=== PATIENT | male | born 1960 | race American Indian/Alaskan Native ===

== ENCOUNTER 2017-01-03 05:39 | Inpatient (IN) | payer MEDICARE, OTHER ==
[2017-01-03 05:39] VITALS: BMI 20.1
--- NOTE | 2017-01-03 06:15 | ED PDOC ---
Arrival/HPI - General Chief Complaint: Abdominal Pain Time Seen by Provider: 01/03/17 06:12 Historian: Patient - History of Present Illness Narrative History of Present Illness (Text): 01/03/17 06:15 Ramón Cedeno Jr is a 56 year old male, whose past medical history includes hypertension, stroke, pancreatitis, and alcohol abuse, who presents to the Emergency department complaining of upper abdominal pain for the past 2 days, worsened today. Patient reports associated nausea. Patient states symptoms are similar to previous episodes of pancreatitis. Patient denies any recent alcohol consumption. Patient denies any fever, chills, chest pain, shortness of breath, nausea, vomiting, diarrhea, urinary symptoms, back pain, headache, dizziness, or any other complaints. Time/Duration: < week (2 days) Symptom Onset: Gradual Symptom Course: Worsening Activities at Onset: Rest, Light Context: Home Past Medical History - Provider Review Nursing Documentation Reviewed: Yes - Infectious Disease Hx of Infectious Diseases: None - Tetanus Immunization Tetanus Immunization: Unknown - Reproductive Currently : No - Cardiac Hx Cardiac Disorders: Yes Hx Hypertension: Yes - Pulmonary Hx Respiratory Disorders: No - Neurological HX Cerebrovascular Accident: Yes (2014) - HEENT Hx HEENT Disorder: No - Renal Hx Renal Disorder: No - Endocrine/Metabolic Hx Endocrine Disorders: No - Hematological/Oncological Hx Blood Disorders: No - Integumentary Hx Dermatological Disorder: No - Musculoskeletal/Rheumatological Hx Musculoskeletal Disorders: Yes Hx Back Pain: Yes Hx Falls: No - Gastrointestinal Hx Gastrointestinal Disorders: Yes Hx Pancreatitis: Yes - Genitourinary/Gynecological Hx Genitourinary Disorders: No - Psychiatric Hx Psychophysiologic Disorder: No Hx Substance Use: No - Past Surgical History Past Surgical History: No Previous Family/Social History - Physician Review Nursing Documentation Reviewed: Yes Family/Social History: Unknown Family HX Smoking Status: Heavy Smoker > 10 Cigarettes Daily Hx Alcohol Use: No Hx Substance Use: No Hx Substance Use Treatment: No Allergies/Home Meds Allergies/Adverse Reactions: Allergies banana Allergy (Verified 01/03/17 05:51) ANAPHYLAXIS grape Allergy (Verified 01/03/17 05:51) ANAPHYLAXIS Home Medications: Home Meds Medication Instructions Recorded Confirmed Aspirin [Ecotrin] 325 mg PO DAILY 12/03/15 02/25/16 Citalopram Hydrobromide [Celexa] 20 mg PO DAILY 12/03/15 02/25/16 Diclofenac Sodium [Voltaren] 75 mg PO BID PRN 12/03/15 02/25/16 DiphenhydrAMINE [Benadryl] 25 mg PO BID PRN 12/03/15 02/25/16 Famotidine [Pepcid] 20 mg PO DAILY 12/03/15 02/25/16 Hydrochlorothiazide [HCTZ] 25 mg PO DAILY 12/03/15 02/25/16 Metoprolol Tartrate [Lopressor] 25 mg PO BID 12/03/15 02/25/16 Simvastatin 20 mg PO DAILY 12/03/15 02/25/16 amLODIPine [Norvasc] 10 mg PO DAILY 12/03/15 02/25/16 Hydrocortisone 1% Oint [Cortizone 11 appl TOP BID 02/25/16 02/25/16 1% Oint] Review of Systems - Physician Review All systems were reviewed & negative as marked: Yes - Review of Systems Constitutional: Normal. absent: Fevers Eyes: Normal ENT: Normal Respiratory: Normal. absent: SOB, Cough Cardiovascular: Normal. absent: Chest Pain Gastrointestinal: Abdominal Pain, Nausea. absent: Diarrhea, Vomiting Genitourinary Male: Normal. absent: Dysuria, Frequency, Hematuria, Urinary Output Changes Musculoskeletal: Normal. absent: Back Pain, Neck Pain Skin: Normal. absent: Rash Neurological: Normal. absent: Headache, Dizziness Endocrine: Normal Hemo/Lymphatic: Normal Psychiatric: Normal Physical Exam Vital Signs Reviewed: Yes Vital Signs Temp Pulse Resp BP Pulse Ox 01/03/17 05:51 97.7 F 76 18 122/86 99 01/03/17 05:39 97.7 F 76 122/86 99 Temperature: Afebrile Blood Pressure: Normal Pulse: Regular Respiratory Rate: Normal Appearance: Positive for: Well-Appearing, Non-Toxic, Comfortable Pain Distress: None Mental Status: Positive for: Alert and Oriented X 3 - Systems Exam Head: Present: Atraumatic, Normocephalic Pupils: Present: PERRL Extroacular Muscles: Present: EOMI Conjunctiva: Present: Normal Mouth: Present: Moist Mucous Membranes Neck: Present: Normal Range of Motion Respiratory/Chest: Present: Clear to Auscultation, Good Air Exchange. No: Respiratory Distress, Accessory Muscle Use Cardiovascular: Present: Regular Rate and Rhythm, Normal S1, S2. No: Murmurs Abdomen: Present: Tenderness (Upper abdominal tenderness), Distention, Normal Bowel Sounds. No: Peritoneal Signs Back: Present: Normal Inspection Upper Extremity: Present: Normal Inspection. No: Cyanosis, Edema Lower Extremity: Present: Normal Inspection. No: Edema Neurological: Present: GCS=15, CN II-XII Intact, Speech Normal Skin: Present: Warm, Dry, Normal Color. No: Rashes Psychiatric: Present: Alert, Oriented x 3, Normal Insight, Normal Concentration Medical Decision Making ED Course and Treatment: 01/03/17 06:15 Impression: 56 year old male complaining of upper abdominal pain and nausea x 2 days. Plan: -- EKG -- CXR -- Labs, lipase, cardiac enzymes -- Reassess and disposition Prior Visits: Notes and results from previous visits were reviewed. On 08/04/2016, pt was seen in the Emergency department for epigastric pain, nausea, and diarrhea. Pt was admitted to the hospital for further evaluation. Progress Notes: 01/03/17 07:[address] Bear, pending labs, response to treatment, and final disposition. - RAD Interpretation Radiology Orders: 01/03/17 06:24 CHEST PORTABLE [RAD] Stat - Medication Orders Current Medication Orders: Sodium Chloride (Sodium Chloride 0.9%) 1,000 mls @ 100 mls/hr IV .Q10H [facility] Discontinued Medications Morphine Sulfate (Morphine) 4 mg IVP STAT STA Stop: 01/03/17 06:27 Ondansetron HCl (Zofran Inj) 4 mg IVP ONCE ONE Stop: 01/03/17 06:27 - Scribe Statement The provider has reviewed the documentation as recorded by the Yashira Meza Provider Scribe Attestation: All medical record entries made by the Scribe were at my direction and personally dictated by me. I have reviewed the chart and agree that the record accurately reflects my personal performance of the history, physical exam, medical decision making, and the department course for this patient. I have also personally directed, reviewed, and agree with the discharge instructions and disposition. Disposition/Present on Arrival - Present on Arrival Any Indicators Present on Arrival: No History of DVT/PE: No History of Uncontrolled Diabetes: No Urinary Catheter: No History of Decub. Ulcer: No History Surgical Site Infection Following: None - Disposition Have Diagnosis and Disposition been Completed?: No Diagnosis: Abdominal pain Disposition Time: 07:00 Condition: STABLE Forms: [employer] (Citizen [place])
[2017-01-03] MEDS ORDERED: Morphine 4 mg/ml ISec IVP STA ×2 (06:26→07:32)
[2017-01-03] MEDS ORDERED: Sodium Chloride 0.9% 1,000 ML IV SCH ×2 (06:30→07:45)
[2017-01-03 06:42] LABS: HEMOGLOBIN 13.1 gm/dL (14.0-18.0); MEAN CELL VOLUME 80.7 fL (80.0-105.0); MEAN CORPUSCULAR HEMOGLOBIN 27.2 pg (25.0-35.0); MEAN CORPUSCULAR HGB CONC 33.8 g/dl (31.0-37.0); MEAN PLATELET VOLUME 11.3 fl (7.0-11.0); RBC 4.81 10^6/uL (3.5-6.1); RED CELL DISTRIBUTION WIDTH 13.6 % (11.5-14.5); WHITE BLOOD COUNT 5.9 10^3/ul (4.5-11.0)
[2017-01-03 06:47] LABS: ALB/GLOB RATIO 1.2 (1.1-1.8); ALBUMIN 4.2 g/dL (3.0-4.8); ALT/SGPT 15 U/L (7-56); AST/SGOT 19 U/L (15-59); BLOOD UREA NITROGEN 9 mg/dL (7-21); CALCIUM 9.4 mg/dL (8.4-10.5); GFR AFRICAN-AMERICAN > 60; GFR NON-AFRICAN AMERICAN > 60
[2017-01-03 07:05] LABS: INR 1.07 (0.93-1.08); PARTIAL THROMBOPLASTIN TIME 25.1 Seconds (23.7-30.8); PROTHROMBIN TIME 11.6 Seconds (9.9-11.8)
[2017-01-03 07:23] LABS: LIPASE 7763 U/L (23-300); TROPONIN I < 0.01 ng/mL
--- NOTE | 2017-01-03 08:03 | ED PDOC ---
Physical Exam - Physical Exam Narrative Physical Exam (Text): 01/03/17 07:53 Signed out from prior MD. Patient is a 56 y/o M with hx of alcohol abuse and pancreatitis, presenting with abdominal pain. Recent visit for same in August. Labs consistent with pancreatitis. Chart review shows CT on 08/04 shows "findings suspicious for mild acute pancreatitis, superimposed on significant chronic pancreatitis, and complicated by a 3x3cm pseudocysts in the pancreatic bod and small 2.8 x 1cm peripancreatic fluid collection." MRCP on 08/05/16 revealing "abnormal appearance of gallbladder. Correlate clinically. Probable pancreatic pseudocysts. Pancreatic ductal dilatation measuring up to approximately 4mm with distal pancreatic duct filling defect, possibily calculus. Patient reports that he has been following up with unknown outpatient GI and has prescription for unknown procedure. Patient reports persistent pain. IVF infusing. Patient NPO and getting pain medication. Patient reports that he has been following up with outpatient GI ( [facility]) but has been unable to get the prescribed MRI MRCP with contrast or scheduled his endoscopic ultrasound with FNA Will page Dr. Canchola and admit to medicine. 01/03/17 08:04 01/03/17 08:[address] Canchola who accepts patient under his service. He is requesting CT abd/pelvis with contrast 01/03/17 11:07 Vital Signs Temp Pulse Resp BP Pulse Ox 01/03/17 08:00 76 18 127/80 96 01/03/17 07:39 80 18 101/69 95 01/03/17 05:51 97.7 F 76 18 122/86 99 01/03/17 05:39 97.7 F 76 122/86 99 Temperature: Afebrile Blood Pressure: Normal Pulse: Regular Respiratory Rate: Normal Appearance: Positive for: Well-Appearing, Non-Toxic, Uncomfortable Pain Distress: None Mental Status: Positive for: Alert and Oriented X 3 - Systems Exam Head: Present: Atraumatic, Normocephalic Respiratory/Chest: Present: Clear to Auscultation, Good Air Exchange. No: Respiratory Distress Cardiovascular: Present: Regular Rate and Rhythm Abdomen: Present: Tenderness Neurological: Present: GCS=15 Psychiatric: Present: Alert, Oriented x 3 Medical Decision Making - Lab Interpretations Lab Results: 01/03/17 06:00 01/03/17 06:00 Lab Results 01/03/17 06:00: WBC 5.9, RBC 4.81, Hgb 13.1 L, Hct 38.8 L, MCV 80.7, MCH 27.2, MCHC 33.8, RDW 13.6, Plt Count 183, MPV 11.3 H 01/03/17 06:00: Sodium 141, Potassium 3.9, Chloride 100, Carbon Dioxide 29, Anion Gap 16, BUN 9, Creatinine 0.7, Est GFR ( Amer) > 60, Est GFR (Non- Af Amer) > 60, Random Glucose 116 H, Calcium 9.4, Total Bilirubin 0.8, AST 19, ALT 15, Alkaline Phosphatase 98, Lactate Dehydrogenase 327 L, Total Creatine Kinase 60, Troponin I < 0.01, Total Protein 7.7, Albumin 4.2, Globulin 3.5, Albumin/Globulin Ratio 1.2, Lipase 7763 H 01/03/17 06:00: PT 11.6, INR 1.07, APTT 25.1 - RAD Interpretation Radiology Orders: 01/03/17 06:24 CHEST PORTABLE [RAD] Stat 01/03/17 08:23 ABD & PELVIS IV CONTRAST ONLY [CT] Stat - Medication Orders Current Medication Orders: Discontinued Medications Sodium Chloride (Sodium Chloride 0.9%) 1,000 mls @ 100 mls/hr IV .Q10H [facility] Last Admin: 01/03/17 06:52 Dose: 100 mls/hr Morphine Sulfate (Morphine) 4 mg IVP STAT STA Stop: 01/03/17 06:27 Last Admin: 01/03/17 06:53 Dose: 4 mg Morphine Sulfate (Morphine) 4 mg IVP STAT STA Stop: 01/03/17 07:33 Last Admin: 01/03/17 08:00 Dose: 4 mg Ondansetron HCl (Zofran Inj) 4 mg IVP ONCE ONE Stop: 01/03/17 06:27 Last Admin: 01/03/17 06:53 Dose: 4 mg Disposition/Present on Arrival - Present on Arrival Any Indicators Present on Arrival: No History of DVT/PE: No History of Uncontrolled Diabetes: No Urinary Catheter: No History of Decub. Ulcer: No History Surgical Site Infection Following: None - Disposition Have Diagnosis and Disposition been Completed?: Yes Diagnosis: Abdominal pain Disposition: HOSPITALIZED Disposition Time: 07:32 Patient Plan: Observation Patient Problems: Current Active Problems Problem Status Onset Abdominal pain Acute Condition: FAIR
[2017-01-03] MEDS ORDERED: Iohexol 350 MG/100 ML VIAL ONE (08:28)
[2017-01-03] MEDS: Sodium Chloride 0.9% 1,000 ML IV SCH ×2 (09:18→09:59)
--- NOTE | 2017-01-03 09:39 | RAD ---
HISTORY: abdominal pain COMPARISON: 08/04/2016 FINDINGS: LUNGS: No active pulmonary disease. PLEURA: No significant pleural effusion identified, no pneumothorax apparent. CARDIOVASCULAR: Normal. OSSEOUS STRUCTURES: No significant abnormalities. VISUALIZED UPPER ABDOMEN: Normal. OTHER FINDINGS: None. IMPRESSION: No active disease.
--- NOTE | 2017-01-03 10:01 | CP.PCM.CON ---
History of Present Illness - History of Present Illness History of Present Illness: Asked by Dr. Canchola for a GI consultation on this patient. 56 year old male with history of HTN, chronic pancreatitis secondary to ETOH abuse who presents with complaint of epigastric abdominal pain. He describes a sharp, 8/10 intensity abdominal pain that radiates to umbilicus and began 2 days ago. He was in usual state of health prior to this. He was eating peanuts and drinking soda when pain started and endorses a subjective fever at that time. He otherwise denies nausea, vomiting, diarrhea, weight loss, rectal bleeding, recent change in medications, or change in bowel habits. He claims to have stopped drinking ETOH about 4 months ago following hospitalization for similar complaints. He was noted to have a pancreatic cystic lesion on MRCP imaging in August 2016 and was recommended to have outpatient EUS but did not follow up. No prior endoscopic evaluation. Social history: smokes 1 PPD cigarettes, prior ETOH abuse (quit August 2016) Family history: father (colon cancer - diagnosed age 70s) Review of Systems - Review of Systems Review of Systems: - All other comprehensive 12 point review of systems performed, negative - Cardiovascular Cardiovascular: absent: Acrocyanosis, Chest Pain, Chest Pain at Rest, Chest Pain with Activity, Claudication, Diaphoresis, Dyspnea, Dyspnea on Exertion, Edema, Irregular Heart Rhythm, Pain Radiating to Arm/Neck/Jaw, Leg Edema, Leg Ulcers, Lightheadedness, Orthopnea, Palpitations, Paroxysmal Nocturnal Dyspnea, Pedal Edema, Radiating Pain, Rapid Heart Rate, Slow Heart Rate, Syncope, Other - Respiratory Respiratory: absent: Cough, Dyspnea, Hemoptysis, Dyspnea on Exertion, Wheezing, Snoring, Stridor, Pain on Inspiration, Chest Congestion, Excessive Mucous Production, Change in Mucous Color, Pain with Coughing, Other - Gastrointestinal Gastrointestinal: Abdominal Pain - Musculoskeletal Musculoskeletal: absent: Abnormal Gait, Arthralgias, Atrophy, Back Pain, Deformity, Joint Swelling, Limited Range of Motion, Loss of Height, Muscle Cramps, Muscle Weakness, Myalgias, Neck Pain, Numbness, Radiating Pain into Limb , Stiffness, Tingling, Other - Neurological Neurological: absent: Abnormal Gait, Abnormal Hearing, Abnormal Movements, Abnormal Speech, Behavioral Changes, Burning Sensations, Confusion, Convulsions , Disequilibrium, Dizziness, Numbness, Focal Weakness, Frequent Falls, Headaches , Lack of Coordination, Loss of Vision, Memory Loss, Paresthesias, Radicular Pain, Restless Legs, Sensory Deficit, Syncope, Tingling, Tremor, Vertigo, Weakness, Other Visual Disturbances, Other Past Patient History - Infectious Disease Hx of Infectious Diseases: None - Tetanus Immunizations Tetanus Immunization: Unknown - Past Medical History & Family History Past Medical History?: Yes - Past Social History Smoking Status: Heavy Smoker > 10 Cigarettes Daily - CARDIAC Hx Cardiac Disorders: Yes Hx Hypertension: Yes - PULMONARY Hx Respiratory Disorders: No - NEUROLOGICAL HX Cerebrovascular Accident: Yes (2014) - HEENT Hx HEENT Problems: No - RENAL Hx Chronic Kidney Disease: No - ENDOCRINE/METABOLIC Hx Endocrine Disorders: No - HEMATOLOGICAL/ONCOLOGICAL Hx Blood Disorders: No - INTEGUMENTARY Hx Dermatological Problems: No - MUSCULOSKELETAL/RHEUMATOLOGICAL Hx Musculoskeletal Disorders: Yes Hx Back Pain: Yes Hx Falls: No - GASTROINTESTINAL Hx Gastrointestinal Disorders: Yes Hx Pancreatitis: Yes - GENITOURINARY/GYNECOLOGICAL Hx Genitourinary Disorders: No - PSYCHIATRIC Hx Psychophysiologic Disorder: No Hx Substance Use: No - SURGICAL HISTORY Hx Surgeries: No Meds Allergies/Adverse Reactions: Allergies Allergy/AdvReac Type Severity Reaction Status Date / Time banana Allergy ANAPHYLAXIS Verified 01/03/17 05:51 grape Allergy ANAPHYLAXIS Verified 01/03/17 05:51 - Medications Medications: Current Medications Hydromorphone HCl (Dilaudid) 0.5 mg IVP Q4H PRN PRN Reason: Pain, moderate (4-7) Sodium Chloride (Sodium Chloride 0.9%) 1,000 mls @ 125 mls/hr IV .Q8H [facility] Stop: 01/07/17 00:29 Last Admin: 01/03/17 09:18 Dose: 125 mls/hr Ondansetron HCl (Zofran Inj) 4 mg IVP Q4H PRN PRN Reason: Nausea/Vomiting Pantoprazole Sodium (Protonix Inj) 40 mg IVP Q12 [facility] Last Admin: 01/03/17 09:26 Dose: 40 mg Physical Exam - Constitutional Appears: Non-toxic, No Acute Distress - Head Exam Head Exam: NORMAL INSPECTION - Eye Exam Eye Exam: EOMI, Normal appearance - ENT Exam ENT Exam: Mucous Membranes Moist - Respiratory Exam Respiratory Exam: Clear to Auscultation Bilateral - Cardiovascular Exam Cardiovascular Exam: REGULAR RHYTHM, +S1, +S2 - GI/Abdominal Exam GI & Abdominal Exam: Normal Bowel Sounds, Soft, Tenderness Additional comments: mild epigastric tenderness to deep palpation, no rebound/guarding no palpable hepato/splenomegaly - Extremities Exam Extremities exam: Positive for: normal inspection - Neurological Exam Neurological exam: Alert, CN II-XII Intact, Oriented x3, Reflexes Normal - Psychiatric Exam Psychiatric exam: Normal Affect, Normal Mood - Skin Skin Exam: Dry, Intact, Warm Additional comments: +patches of vitilligo on lips, b/l upper and lower extremities, trunk Results - Vital Signs Recent Vital Signs: Last Vital Signs Temp 97.7 F 01/03/17 05:51 Pulse 79 01/03/17 08:52 Resp 18 01/03/17 08:52 BP 139/86 01/03/17 08:52 Pulse Ox 97 01/03/17 08:52 - Labs Result Diagrams: 01/03/17 06:00 01/03/17 06:00 Assessment & Plan - Assessment and Plan (Free Text) Assessment: HTN Abdominal pain Acute on chronic pancreatitis, prior history of ETOH abuse and pancreatic cystic lesion Plan: - Clear liquid diet as tolerated - Pain control - Continue with IVF hydration, adjust fluid rate to provide adequate fluid resuscitation within first 24 hours - CT imaging ordered by medical team, will follow up results - Consider US imaging to further evaluate gallbladder - Awaiting lipid profile - LFTs stable, continue to monitor - Further management pending results of pancreatic imaging. Patient would also benefit from elective outpatient colonoscopy for colorectal cancer screening, particularly given family history of colon cancer. Will continue to monitor patient clinical course.
--- NOTE | 2017-01-03 10:10 | CARD ---
APPROVED REPORT EKG Measurement Heart [id number] <Conclusion> Normal sinus rhythm Normal ECG No change
[2017-01-03 10:30] LABS: HDL CHOLESTEROL 40 mg/dL (29-60); LDL CHOLESTEROL 109 mg/dL (0-129)
[2017-01-03 10:38] LABS: FREE T4 1.3 ng/dL (0.78-2.19); T4 9.6 ug/dL (5.5-11.0)
--- NOTE | 2017-01-03 10:49 | CT ---
PROCEDURE: CT Abdomen and Pelvis with contrast HISTORY: abdominal pain COMPARISON: 08/04/2016 TECHNIQUE: Contrast dose: 100 cc of Omni 350 Radiation dose: Total exam DLP = 362 mGy-cm. This CT exam was performed using one or more of the following dose reduction techniques: Automated exposure control, adjustment of the mA and/or kV according to patient size, and/or use of iterative reconstruction technique. FINDINGS: LOWER THORAX: Unremarkable. LIVER: Unremarkable. No gross lesion or ductal dilatation. GALLBLADDER AND BILE DUCTS: Unremarkable. PANCREAS: Multiple findings are seen in the pancreas related to chronic pancreatitis. There are calcifications throughout the pancreas as well as dilatation of the pancreatic duct which measures 5 mm. There is a pseudocyst in the pancreatic head measuring 3.2 cm. There is some increased density within the pseudocyst which could represent hemorrhagic or proteinaceous debris. Increasing hypodensities are seen in the uncinate process which probably represent new pseudocysts. A pancreatic malignancy would be difficult to exclude. There are no acute inflammatory changes seen. The fat planes surrounding the pancreas are unremarkable SPLEEN: Unremarkable. ADRENALS: Unremarkable. No mass. KIDNEYS AND URETERS: Unremarkable. No hydronephrosis. No solid mass. VASCULATURE: Unremarkable. No aortic aneurysm. BOWEL: Unremarkable. No obstruction. No gross mural thickening. APPENDIX: Normal appendix. PERITONEUM: Unremarkable. No free fluid. No free air. LYMPH NODES: Unremarkable. No enlarged lymph nodes. BLADDER: Unremarkable. REPRODUCTIVE: Unremarkable. BONES: No acute fracture. OTHER FINDINGS: None. IMPRESSION: Changes of chronic pancreatitis with dilatation of the pancreatic duct. Pseudocyst formation and multiple calcifications. No acute findings
[2017-01-03] MEDS: Lactated Ringer's 1,000 ML IV SCH ×2 (11:46→17:03)
[2017-01-03 17:02] LABS: HEPATITIS B SURFACE AG NEGATIVE (NEGATIVE)
[2017-01-03 17:07] LABS: HEPATITIS A IGM NEGATIVE (NEGATIVE)
[2017-01-03 17:08] LABS: HEPATITIS B CORE AB NEGATIVE (NEGATIVE)
[2017-01-03] MEDS: HYDROmorphone 0.5 mg/0.5 ml ISec IVP PRN ×2 (17:08→21:51)
[2017-01-03 17:18] LABS: HEPATITIS C ANTIBODY NEGATIVE (NEGATIVE)
[2017-01-03 23:42] LABS: URINE BILIRUBIN NEGATIVE (NEGATIVE); URINE BLOOD NEGATIVE (NEGATIVE); URINE GLUCOSE (UA) NEGATIVE (NEGATIVE); URINE LEUKOCYTE ESTERASE NEGATIVE Leu/uL (NEGATIVE); URINE NITRATE NEGATIVE (NEGATIVE); URINE PROTEIN TRACE mg/dL (<30 mg/dL); URINE UROBILINOGEN 0.2 E.U./dL (<1 E.U./dL)
[2017-01-03 23:52] LABS: URINE APPEARANCE CLEAR (CLEAR); URINE COLOR YELLOW (YELLOW)
[2017-01-04 00:04] LABS: URINE EPITHELIAL CELLS 0 - 2 /hpf (0-5); URINE RBC 0 - 2 /hpf (0-2); URINE WBC 0 - 2 /hpf (0-6)
[2017-01-04 00:25] LABS: BARBITURATES, UR NEGATIVE (NEGATIVE); BENZODIAZEPINES, UR NEGATIVE (NEGATIVE); OPIATES, UR POSITIVE (NEGATIVE); PHENCYCLIDINE, UR NEGATIVE (NEGATIVE)
--- NOTE | 2017-01-04 01:33 | HP ---
HISTORY OF PRESENT ILLNESS: The patient is a 56-year-old male, who has been admitted at least two or three times to [facility] with complaints of abdominal pain, pancreatitis and pancreatic pseudocysts. The patient came this morning to the [facility] around 5:00 a.m. this morning complaining of midabdominal pain for two days. The patient stated that his last bowel movement was Tuesday which was two days ago. The patient came to the emergency room via [facility]. According to the ER physician evaluation note, the patient presents with mid abdominal pain for two days which has increased today with nausea. The patient categorically denies alcohol use. The patient does admit to smoking. REVIEW OF SYSTEMS: A 13-system review was done which is negative. CODE STATUS: Full code. LIVING WILL/ADVANCED DIRECTIVE: None. HEIGHT: 5 feet 6 inches. WEIGHT: 135 pounds. BMI: 22. ALLERGIES: BANANAS AND GRAPES but no known drug allergies. MEDICATIONS: The patient's home medications include Norvasc 10 mg daily, simvastatin 20 mg daily, Lopressor 25 mg twice a day, cortisone cream, hydrochlorothiazide 25 mg daily, Pepcid 20 mg twice a day, Benadryl 25 mg twice a day p.r.n., Voltaren 75 mg b.i.d. p.r.n., Celexa 20 mg daily, aspirin 325 mg daily. SOCIAL HISTORY: Positive for active smoking, positive for alcohol use. OCCUPATIONAL HISTORY: The patient used to work in a factory. PAST MEDICAL/SURGICAL HISTORY: History of TIA in 2015, history of hypertension, history of dyslipidemia, history of alcohol-induced pancreatitis, history of questionable depression, history of back pain. The patient's past medical history is also significant for hypertension, history of leukopenia, history of anemia, history of transient hyperbilirubinemia, history of former alcohol use, active smoking. The patient's past medical history is significant for pancreatic pseudocyst, history of acute on chronic recurrent pancreatitis, history of atelectasis. The patient's past medical history is significant for hiatal hernia, history of gastroesophageal reflux, history of hepatic steatosis, history of pancreatic head pseudocyst. The patient's past medical history is significant for degenerative joint disease of the spine. Past medical history is also significant for noncompliance. The patient's past medical history is significant for history of focal gallbladder wall thickening, history of pancreatic cystic mass in the pancreatic head, pancreatic body with enlargement, history of pancreatic pseudocyst, history of pancreatic calcification, history of dilated pancreatic duct up to 8 mm, history of acute on chronic recurrent pancreatitis, history of pseudo-gastric wall thickening due to under distention, history of osteoarthritis of the right hip, history of gastritis, history of diffuse gallbladder wall thickening, history of MRCP and previous CAT scan done at [facility] since 2016, history of filling defect in the distal pancreatic duct with dilated distal pancreatic duct, history of peripancreatic fluid collection, history of mild ascites, history of probably pancreatic pseudocyst, history of pancreatic ductal dilatation up to 4 mm with distal pancreatic duct filling defect, possibly pancreatic duct calculus, history of ascites. The patient's past medical history is significant for history of alcohol dependence in the past. PHYSICAL EXAMINATION VITAL SIGNS: T-max is 97.7. Blood pressure is 122/86, 127/80, 139/86. Respirations 18. O2 saturation is 95% to 99%. GENERAL: The patient is seen lying in room #573, bed 3. The patient is lying in the bed. The patient is comfortable. HEENT: The patient's head examination is normocephalic and atraumatic. Pinkish conjunctivae, dry oral mucosa, no neck rigidity. CHEST: Kyphosis. LUNGS: Shows no rales, rhonchi or wheezing. CARDIOPULMONARY: S1, S2, regular rhythm. ABDOMEN: Slightly distended, slightly firm. Decreased bowel sounds. GENITALIA: Male. RECTAL: Deferred. EXTREMITIES: Shows no *------* Homans sign. NEUROLOGIC: The patient is alert, awake, responsive. He is able to move upper and lower extremities without assistance. MUSCULOSKELETAL: Shows a body mass index of 22. Cranial nerves II through XII are not tested. PSYCHIATRIC: Positive for history of depression. DIAGNOSTIC DATA: WBC 5.9, hemoglobin and hematocrit 13.1 and 38.8, platelets 183,000. PT and PTT is normal. Sodium 141, potassium 3.9, chloride 100, CO2 of 29, anion gap 16, BUN 9, creatinine 0.7, GFR greater than 60. Glucose 116. Calcium 9.4. LFTs show LDH of 327, troponin 0.01, triglycerides 112, cholesterol 172, LDL 109, lipase is 7763, PSA is 1.8, TSH is normal, T4 is normal. The patient had a CAT scan of the abdomen done which showed pancreatic calcifications, dilatation of the pancreatic duct 5 mm, pseudocyst of the pancreatic head, hemorrhagic and proteinaceous dense debris in the pancreatic pseudocyst representing new pancreatic pseudocyst. EKG was reviewed, shows sinus rhythm. The patient was seen and treated in the emergency room with IV fluid, IV morphine, IV Zofran. IMPRESSION AND PLAN: 1. Abdominal pain. 2. Acute recurrent on chronic pancreatitis with history of alcohol abuse. 3. Pancreatic pseudocyst. 4. Normocytic anemia. 5. Hyperglycemia. 6. Acute on chronic recurrent pancreatitis with elevated lipase. 7. Increasing pancreatic pseudocyst with acute recurrent on chronic pancreatitis. 8. Dilated pancreatic duct. 9. Pancreatic head pseudocyst. 10. Increasing pancreatic pseudocyst density representing hemorrhagic or proteinaceous debris with increasing hyperdensities in the uncinate process, probably new pancreatic pseudocyst. 11. Active nicotine addiction. 12. History of hypertension. 13. History of dyslipidemia. 14. History of alcohol abuse. PLAN: At this time, the patient is admitted to [facility]. Serial labs has been ordered. Serial amylase and lipase ordered, vitamin D, hepatitis family, HIV ordered. GI consultation requested. The patient was started on Dilaudid 0.5 mg IV q.4 p.r.n. Ringer's lactate at 200 mL an hour ordered. The patient started on nicotine patch 21 mg daily, Protonix 40 mg IV q.12, Zofran 4 mg IV q.4 p.r.n. The patient is started on liquid diet by Dr. Lilly. The patient is ordered incentive spirometry q.2 hours. The patient has been ordered out of bed to chair. The patient's case was discussed with the webbing tacker, Dr. Lilly. His recommendation is EUS and colonoscopy which is going to be scheduled during this hospitalization as per the webbing tacker. Dictated and electronically signed, not read. Nilesh Canchola MD
[2017-01-04] MEDS: Lactated Ringer's 1,000 ML IV SCH ×3 (03:26→17:29)
[2017-01-04] MEDS ORDERED: Lactated Ringer's 1,000 ML IV SCH (07:16)
[2017-01-04] MEDS ORDERED: Barium Sulfate Susp 2.1% w/v, 2.0% w/w 450 mL Bottle PO ONE (07:26)
[2017-01-04 07:55] LABS: BASO # 0.01 K/mm3 (0.0-2.0); BASO % 0.1 % (0.0-3.0); EOS # 0.2 (0.0-0.7); EOS % 2.5 % (1.5-5.0); GRAN # 5.17 (1.4-6.5); GRAN % 70.4 % (50.0-68.0); HEMOGLOBIN 12.3 gm/dL (14.0-18.0); LYMPH # 1.4 (1.2-3.4); LYMPH % 19.1 % (22.0-35.0); MEAN CELL VOLUME 80.8 fL (80.0-105.0); MEAN CORPUSCULAR HEMOGLOBIN 27.5 pg (25.0-35.0); MEAN CORPUSCULAR HGB CONC 34.1 g/dl (31.0-37.0); MONO # 0.6 (0.1-0.6); MONO % 7.9 % (1.0-6.0); PLATELET COUNT 177 10^3/uL (120.0-450.0); RBC 4.47 10^6/uL (3.5-6.1); RED CELL DISTRIBUTION WIDTH 13.5 % (11.5-14.5); WHITE BLOOD COUNT 7.3 10^3/ul (4.5-11.0)
[2017-01-04] MEDS ORDERED: Iohexol 240 (50 ml) ONE (08:08)
[2017-01-04 09:04] LABS: ALB/GLOB RATIO 1.3 (1.1-1.8); ALBUMIN 3.9 g/dL (3.0-4.8); ALT/SGPT 20 U/L (7-56); AST/SGOT 19 U/L (15-59); BILIRUBIN,DIRECT 0.4 mg/dL (0.0-0.4); BLOOD UREA NITROGEN 9 mg/dL (7-21); CALCIUM 9.1 mg/dL (8.4-10.5); GFR AFRICAN-AMERICAN > 60; GFR NON-AFRICAN AMERICAN > 60; LIPASE 1611 U/L (23-300); MAGNESIUM 1.8 mg/dL (1.7-2.2)
[2017-01-04 09:09] LABS: AMYLASE 620 U/L (35-125)
--- NOTE | 2017-01-04 09:09 | CP.PCM.PN ---
<Rosalina Cha - Last Filed: 01/04/17 17:38> Subjective - Date & Time of Evaluation Date of Evaluation: 01/04/17 Time of Evaluation: 09:05 - Subjective Subjective: Gastroenterology Fellow/PGY5 Progress Note Patient notes unchanged epigastric pain, pain scale 8/10. He feels more distended which is adding to his discomfort. Notes yesterday morning clear liquids made the pain worse but tolerated clear liquids for dinner. No bowel movement yesterday. A 12-point review of systems negative except for as above. Objective - Vital Signs/Intake and Output Vital Signs (last 24 hours): Temp Pulse Resp BP Pulse Ox 99 F 104 H 20 124/91 H 94 L 01/04/17 08:24 01/04/17 08:24 01/04/17 08:24 01/04/17 08:24 01/04/17 08:24 Intake and Output: 01/04/17 01/04/17 06:59 18:59 Intake Total 840 Balance 840 - Medications Medications: Current Medications Atorvastatin Calcium (Lipitor) 40 mg PO DIN [facility] Last Admin: 01/03/17 22:37 Dose: 40 mg Cholecalciferol (Vitamin D) 2,000 iu PO DAILY [facility] Hydromorphone HCl (Dilaudid) 0.5 mg IVP Q4H PRN PRN Reason: Pain, moderate (4-7) Last Admin: 01/03/17 21:51 Dose: 0.5 mg Lactated Ringer's (Lactated Ringer's) 1,000 mls @ 200 mls/hr IV .Q5H [facility] Nicotine (Nicoderm Cq) 1 patch TD DAILY [facility] Last Admin: 01/03/17 12:11 Dose: 1 patch Ondansetron HCl (Zofran Inj) 4 mg IVP Q4H PRN PRN Reason: Nausea/Vomiting Pantoprazole Sodium (Protonix Inj) 40 mg IVP Q12 [facility] Last Admin: 01/03/17 21:51 Dose: 40 mg - Labs Labs: 01/04/17 07:30 PT 11.6 Seconds (9.9-11.8) 01/03/17 06:00 INR 1.07 (0.93-1.08) 01/03/17 06:00 APTT 25.1 Seconds (23.7-30.8) 01/03/17 06:00 - Constitutional Appears: Non-toxic, No Acute Distress - Head Exam Head Exam: ATRAUMATIC, NORMOCEPHALIC - Eye Exam Eye Exam: EOMI, PERRL Pupil Exam: PERRL. absent: Miosis, Mydriatic - ENT Exam ENT Exam: Mucous Membranes Moist, Normal Oropharynx - Neck Exam Neck Exam: Full ROM, Normal Inspection - Respiratory Exam Respiratory Exam: Clear to Ausculation Bilateral. absent: Rales, Rhonchi, Wheezes - Cardiovascular Exam Cardiovascular Exam: RRR, +S1, +S2. absent: Gallop, Rubs - GI/Abdominal Exam GI & Abdominal Exam: Distended, Firm, Tenderness, Hypoactive Bowel Sounds. absent: Guarding, Rigid, Organomegaly, Rebound Additional comments: epigastric tenderness to palpation - Extremities Exam Extremities Exam: Full ROM, Pedal Edema - Neurological Exam Neurological Exam: Alert, Awake - Psychiatric Exam Psychiatric exam: Normal Affect, Normal Mood - Skin Skin Exam: Dry, Intact, Normal Color, Warm Assessment and Plan - Assessment and Plan (Free Text) Assessment: 56 year old male with history of Hypertension, Alcohol abuse (endorsed sobriety since 08/2016), and recurrent alcoholic pancreatitis ( last episode 08/2016) presenting with abdominal pain. Active treatment of acute on chronic pancreatitis. CT A/P IV contrast showed pancreatic head 3.2cm pseudocyst ( increased internal density), uncinate process increased densities (likely new pseudocysts), and pancreatic duct dilatation. No prior endoscopic evaluation. Plan: >pending Abdominal U/S and obstructive series >would not repeat CT scan as low utility in re-evaluation pancreatitis progress at less than [address] and admission >Lipid panel within normal limits >continue LR 150cc/hr >clear liquid diet as tolerated >supportive care: pain control, anti-emetics, PPI >ordered Miralax daily >will benefit from elective CT pancreas protocol after resolution of acute pancreatitis > will benefit from elective outpatient colonoscopy for colorectal cancer screening -family history of colon cancer >will follow clinical course <Felix Ibrahim - Last Filed: 01/04/17 19:40> Objective - Vital Signs/Intake and Output Vital Signs (last 24 hours): Temp Pulse Resp BP Pulse Ox 98.3 F 110 H 22 149/97 H 94 L 01/04/17 16:00 01/04/17 16:00 01/04/17 16:00 01/04/17 16:00 01/04/17 16:00 Intake and Output: 01/04/17 01/05/17 18:59 06:59 Intake Total 600 Balance 600 - Medications Medications: Current Medications Atorvastatin Calcium (Lipitor) 40 mg PO DIN [facility] Last Admin: 01/04/17 17:28 Dose: 40 mg Cholecalciferol (Vitamin D) 2,000 iu PO DAILY [facility] Last Admin: 01/04/17 11:00 Dose: 2,000 iu Hydromorphone HCl (Dilaudid) 0.5 mg IVP Q4H PRN PRN Reason: Pain, moderate (4-7) Last Admin: 01/04/17 09:46 Dose: 0.5 mg Lactated Ringer's (Lactated Ringer's) 1,000 mls @ 150 mls/hr IV .Q6H40M [facility] Last Admin: 01/04/17 17:29 Dose: 150 mls/hr Nicotine (Nicoderm Cq) 1 patch TD DAILY [facility] Last Admin: 01/04/17 09:47 Dose: 1 patch Ondansetron HCl (Zofran Inj) 4 mg IVP Q4H PRN PRN Reason: Nausea/Vomiting Pantoprazole Sodium (Protonix Inj) 40 mg IVP Q12 [facility] Last Admin: 01/04/17 09:47 Dose: 40 mg Polyethylene Glycol (Miralax) 17 gm PO DAILY [facility] Last Admin: 01/04/17 09:47 Dose: 17 gm - Labs Labs: PT 11.6 Seconds (9.9-11.8) 01/03/17 06:00 INR 1.07 (0.93-1.08) 01/03/17 06:00 APTT 25.1 Seconds (23.7-30.8) 01/03/17 06:00 Attending/Attestation - Attestation I have personally seen and examined this patient.: Yes I have fully participated in the care of the patient.: Yes I have reviewed all pertinent clinical information, including history, physical exam and plan: Yes Notes (Text): 01/04/17 19:36 56 year old male with h/o EtOH abuse c/b chronic calcific pancreatitis admitted with abdominal pain. 1. Chronic pancreatitis 2. Pancreatic pseudocyst Plan: -CT scans reviewed -he has pancreatitis and looks like a small cyst as well as possible evolving small fluid collection adjacent to the stomach -would continue supportive measures for pancreatitis including pain control, IV hydration, anti-emetics as needed -advance diet as tolerated to low fat -etoh and smoking cessation/abstinence -recommend repeat CT scan in 1-2 months -consider outpatient EUS
[2017-01-04] MEDS ORDERED: Iohexol 350 MG/100 ML VIAL ONE (09:22)
[2017-01-04] MEDS: HYDROmorphone 0.5 mg/0.5 ml ISec IVP PRN (09:46)
[2017-01-04] MEDS: POLYETHYLENE GLYCOL 3350 17 GM/Dose PACKET PO SCH (09:47)
--- NOTE | 2017-01-04 10:55 | CP.PCM.PN ---
Subjective - Date & Time of Evaluation Date of Evaluation: 01/04/17 Time of Evaluation: 07:00 - Subjective Subjective: Medicine Progress Note for Dr. Canchola Patient seen and examined at bedside. There were no acute overnight events. Patient was complaining about LUQ abdominal pain today which radiates throughout the abdomen, especially upon palpation. He had a BM this morning. He denies CP, SOB, n/v/d, numbness/tingling, fever or chills. Objective - Vital Signs/Intake and Output Vital Signs (last 24 hours): Temp Pulse Resp BP Pulse Ox 99 F 104 H 20 124/91 H 94 L 01/04/17 08:24 01/04/17 08:24 01/04/17 08:24 01/04/17 08:24 01/04/17 08:24 - Medications Medications: Current Medications Atorvastatin Calcium (Lipitor) 40 mg PO DIN [facility] Last Admin: 01/03/17 22:37 Dose: 40 mg Cholecalciferol (Vitamin D) 2,000 iu PO DAILY [facility] Hydromorphone HCl (Dilaudid) 0.5 mg IVP Q4H PRN PRN Reason: Pain, moderate (4-7) Last Admin: 01/04/17 09:46 Dose: 0.5 mg Lactated Ringer's (Lactated Ringer's) 1,000 mls @ 150 mls/hr IV .Q6H40M [facility] Last Admin: 01/04/17 09:47 Dose: 150 mls/hr Nicotine (Nicoderm Cq) 1 patch TD DAILY [facility] Last Admin: 01/04/17 09:47 Dose: 1 patch Ondansetron HCl (Zofran Inj) 4 mg IVP Q4H PRN PRN Reason: Nausea/Vomiting Pantoprazole Sodium (Protonix Inj) 40 mg IVP Q12 [facility] Last Admin: 01/04/17 09:47 Dose: 40 mg Polyethylene Glycol (Miralax) 17 gm PO DAILY [facility] Last Admin: 01/04/17 09:47 Dose: 17 gm - Labs Labs: PT 11.6 Seconds (9.9-11.8) 01/03/17 06:00 INR 1.07 (0.93-1.08) 01/03/17 06:00 APTT 25.1 Seconds (23.7-30.8) 01/03/17 06:00 - Constitutional Appears: No Acute Distress - Head Exam Head Exam: ATRAUMATIC, NORMAL INSPECTION, NORMOCEPHALIC - Eye Exam Eye Exam: Normal appearance, PERRL Pupil Exam: NORMAL ACCOMODATION, PERRL - ENT Exam ENT Exam: Mucous Membranes Moist - Neck Exam Neck Exam: Full ROM, Normal Inspection - Respiratory Exam Respiratory Exam: Clear to Ausculation Bilateral, NORMAL BREATHING PATTERN. absent: Rales, Rhonchi, Wheezes, Respiratory Distress - Cardiovascular Exam Cardiovascular Exam: REGULAR RHYTHM, +S1, +S2. absent: Gallop, Rubs, Murmur - GI/Abdominal Exam GI & Abdominal Exam: Distended, Firm, Tenderness (LUQ), Normal Bowel Sounds. absent: Guarding, Rigid, Rebound Additional comments: Tympanic upon percussion - Extremities Exam Extremities Exam: Normal Inspection. absent: Calf Tenderness, Pedal Edema - Neurological Exam Neurological Exam: Alert, Awake, CN II-XII Intact, Oriented x3 - Psychiatric Exam Psychiatric exam: Normal Affect, Normal Mood - Skin Skin Exam: Dry, Intact, Normal Color, Warm Additional comments: Vitiligo Assessment and Plan - Assessment and Plan (Free Text) Assessment: This is a 56Y AA M with PMH HTN, chronic pancreatitis secondary to alcohol use admitted for acute on chronic pancreatitis. Patient was found to have more distention in abdomen today. Stat CT ordered, GI was made aware as well. Plan: 1. Acute on chronic pancreatitis - Hx of pancreatic psuedocyst- Pt was supposed to f/u with GI as outpt, but did not - More distention today - Repeat CT abd/pelv with IV/PO cont - CT on 01/03 showed pancreatic pseudocyst with new cysts and calcification in pancreas - GI consulted-recs appreciated - Abd U/S pending - Continue LR @150 and Clear liquid diet - Lipase trending down - Zofran prn nausea - Miralax for constipation - Dilaudid prn for pain 2. Dyslipidemia - Continue Lipitor - Lipid panel within normal limits 3. Hx of HTN - Normotensive since admission - Not on antihypertensives- if becomes elevated- will restart home meds 4. Tobacco abuse - Nicotine patch - Counseled on smoking cessation 5. Vit D deficiency - Vit D low - Continue Vit D GI PPX: Protonix DVT ppx: SCDs Dispo: Will follow up surgery and GI recommendations. Will follow up CT results Case seen, discussed and reviewed with Dr. Canchola
--- NOTE | 2017-01-04 12:00 | PN ---
DATE: 01/04/2017 SUBJECTIVE: The patient was seen in room 573, bed 3. The patient was seen and examined with the pediatric medical assistant. The patient is complaining of slightly increased more abdominal pain and the patient was found to have an increasing abdominal distention as compared to yesterday. The patient states that he did have a bowel movement today. PHYSICAL EXAMINATION: VITAL SIGNS: T-max 99, heart rate 104, blood pressure 124/91, respirations 20, O2 sat 96% to 94%. INTAKE/OUTPUT: Reviewed. HEAD: Normocephalic, atraumatic. HEENT: Pinkish conjunctivae. Dry oral mucosa. Positive vitiligo noted of the skin. NECK: No neck rigidity. CHEST: Kyphosis. LUNGS: Occasional rhonchi. CARDIOVASCULAR: S1 and S2, regular rhythm. ABDOMEN: Distended, firm, and tender to palpation in the periumbilical and epigastric and left upper quadrant and at the periumbilical region. Positive diffuse tenderness and guarding noted. GENITALIA: Male. Rectal examination is deferred. EXTREMITIES: No pitting edema, no calf tenderness, no Homans' sign. NEUROLOGIC: The patient is alert, awake, responsive. The patient is able to move upper and lower extremity without assistance. Gait examination is not tested. VASCULAR: Palpable pulses. Cranial nerves II through XII limited. Gait examination is not tested. PSYCHIATRIC: Negative for suicidal, homicidal ideation. Negative for auditory, visual hallucinations. Negative for any deficits at present. DIAGNOSTICS: Today, WBC 7.3, hemoglobin, hematocrit 12.3, 36.1, platelets 177, granulocytes 70%. Chemistry: Sodium 138, potassium 3.9, chloride 101, CO2 27, anion gap 14, BUN 9, creatinine 0.8, GFR greater than 60, glucose 100, hemoglobin A1c 4.6, calcium 9.1, magnesium 1.8. LFTs are normal, amylase 620, lipase 1611. Vitamin D 12.8. Hepatitis A and HIV negative. IMPRESSION AND PLAN: 1. Increasing abdominal pain and abdominal distention, etiology undetermined. 2. Normocytic anemia with granulocytosis. 3. Tachycardia. 4. Low-grade fever. 5. Acute and chronic recurrent pancreatitis with pancreatic calcification and pancreatic duct dilatation up to 5 mm with elevated amylase, lipase. 6. Hypovitaminosis *------*. 7. Trace proteinuria. 8. Pancreatic head pseudocyst with hemorrhagic and proteinaceous debris in the pancreatic pseudocyst. 7. Probable new pancreatic pseudocyst in the uncinate process. 8. History of alcohol dependence. PLAN: At this time, the patient has been ordered serial labs. The patient is awaiting a repeat CAT scan ultrasound of the abdomen. The patient has requested a surgical evaluation because of abdominal distention and new abdominal finding. The patient is on Dilaudid 0.5 IV q. 4 p.r.n., ringer lactate at 150 mL an hour, Lipitor 40 mg daily, MiraLax 17 gram p.o. daily, nicotine patch 21 mg daily, Protonix 40 IV q. 12, vitamin D3 2000 unit daily, Zofran 4 mg IV q. 4 p.r.n. The patient's abdominal ultrasound and CT of the abdomen and pelvis are pending. The patient is on incentive spirometry, liquid diet, out of bed. At present, the patient's further management will be dependent upon the patient's clinical condition, hemodynamic status, and as per the patient response to therapeutic intervention, as per the patient's diagnostic test results, and as per recommendation by all the physicians involved in the care of the patient. Nilesh Canchola MD
--- NOTE | 2017-01-04 12:08 | CP.PCM.PN ---
Subjective - Date & Time of Evaluation Date of Evaluation: 01/04/17 Time of Evaluation: 11:00 - Subjective Subjective: Surgery Progress note Dr. Dee Surgery team was consulted for evaluation of abdominal distention and acute on chronic pancreatitis. Patient seen and examined at bedside. States that he was experiencing abdominal pain located in the epigastric region for the past 4 days after drinking coffee. Pain is characterized as being sharp in nature and remains localized to the epigastrium. States that drinking rod sharonda helped reduce the level of pain. Pain has significantly reduced this morning, Patient experienced a nonbloody bowel movement this AM. Tolerating diet. Denies fever, chills, chest pain, SOB, N/V. 12 point review of systems negative except as indicated on the HPI. Physical Exam General: NAD Head: AT-NC Eyes: EOMI ENT: MMM Heart: +s1 +s2, RRR Lungs: CTA bilaterally Abdomen: distended, rigid, tender to palpation diffusely, no guarding, no rebound tenderness Neurology: AAO x 3, awake, alert, responds to verbal stimuli, moves extremities past midline Skin: Vertiligo bilateral upper extremities, bilateral lower extremities Objective - Vital Signs/Intake and Output Vital Signs (last 24 hours): Temp Pulse Resp BP Pulse Ox 99 F 104 H 20 124/91 H 94 L 01/04/17 08:24 01/04/17 08:24 01/04/17 08:24 01/04/17 08:24 01/04/17 08:24 - Medications Medications: Current Medications Atorvastatin Calcium (Lipitor) 40 mg PO DIN [facility] Last Admin: 01/03/17 22:37 Dose: 40 mg Cholecalciferol (Vitamin D) 2,000 iu PO DAILY [facility] Hydromorphone HCl (Dilaudid) 0.5 mg IVP Q4H PRN PRN Reason: Pain, moderate (4-7) Last Admin: 01/04/17 09:46 Dose: 0.5 mg Lactated Ringer's (Lactated Ringer's) 1,000 mls @ 150 mls/hr IV .Q6H40M [facility] Last Admin: 01/04/17 09:47 Dose: 150 mls/hr Nicotine (Nicoderm Cq) 1 patch TD DAILY [facility] Last Admin: 01/04/17 09:47 Dose: 1 patch Ondansetron HCl (Zofran Inj) 4 mg IVP Q4H PRN PRN Reason: Nausea/Vomiting Pantoprazole Sodium (Protonix Inj) 40 mg IVP Q12 [facility] Last Admin: 01/04/17 09:47 Dose: 40 mg Polyethylene Glycol (Miralax) 17 gm PO DAILY [facility] Last Admin: 01/04/17 09:47 Dose: 17 gm - Labs Labs: PT 11.6 Seconds (9.9-11.8) 01/03/17 06:00 INR 1.07 (0.93-1.08) 01/03/17 06:00 APTT 25.1 Seconds (23.7-30.8) 01/03/17 06:00 Assessment and Plan - Assessment and Plan (Free Text) Plan: Assessment and Plan: 1. Abdominal Pain; Acute on Chronic Pancreatitis; Pancreatic Pseudocyst with new cysts and calcification in pancreas - Hx of pancreatic pseudocyst- Pt was supposed to f/u with GI as outpatient, but did not - Repeat CT abd/pelv with IV/PO contrast pending - GI consulted-recs appreciated - Abd U/S pending - Continue LR @150 and NPO - Lipase trending down - Zofran prn nausea - Dilaudid prn for pain Follow recs as per Dr. Luiz Blas D.O. PGY1
--- NOTE | 2017-01-04 12:08 | CT ---
PROCEDURE: CT Abdomen and Pelvis with contrast HISTORY: distended abdomen COMPARISON: And pelvis CT with contrast 01/03/2017. TECHNIQUE: Contrast dose: Omnipaque 350, 100 cc. Radiation dose: Total exam DLP = 464 mGy-cm. This CT exam was performed using one or more of the following dose reduction techniques: Automated exposure control, adjustment of the mA and/or kV according to patient size, and/or use of iterative reconstruction technique. FINDINGS: LOWER THORAX: Bilateral basilar dependent atelectasis appears increased, favored over pneumonia. Hiatal hernia is identified. LIVER: There is borderline intrahepatic biliary dilatation. The liver is otherwise stable. GALLBLADDER AND BILE DUCTS: Gallbladder is distended with vicarious excretion of iodinated contrast material appreciated in the dependent portion. Sympathetic mural thickening suggested at the distal body related to pancreatitis. PANCREAS: Chronic pancreatitis is again appreciated with likely associated acute pancreatitis resulting [id number]-[id number] peripancreatic reaction. An ill defined lucency at the neck of the pancreas is identified potentially reflecting neoplasm or complex pseudocyst. Its internal density is very poorly marginated/characterized. Pancreatic duct dilatation persists, but the duct is also less well defined. Limited fluid is identified at the left greater than right para renal spaces. Sympathetic thickening of the lesser curvature of the stomach is suggested. SPLEEN: Unremarkable. ADRENALS: Unremarkable. No mass. KIDNEYS AND URETERS: One are 2 tiny lucency is again seen in each kidneys renal parenchyma too small to characterize. No obstructive uropathy once again. VASCULATURE: Unremarkable. No aortic aneurysm. BOWEL: Unremarkable. No obstruction. No gross mural thickening. APPENDIX: The appendix not clearly identified. . PERITONEUM: Trace pelvic ascites is noted related to pancreatitis. No free intrarenal gas. LYMPH NODES: Unremarkable. No enlarged lymph nodes. BLADDER: Unremarkable. REPRODUCTIVE: Enlarged prostate gland again evident. BONES: No suspicious interval findings. OTHER FINDINGS: None. IMPRESSION: 1. Mild interval progression of pancreatitis with peripancreatic reaction now evident without large fluid collection. Lucency at the pancreatic neck is less well defined, with neoplasm not excluded. Complex pseudocyst is a possibility here as alternative. Further clinical correlation and CT follow-up are advised. Sympathetic edema is seen related to the gallbladder and lesser curvature of the stomach. 2. Other lesser findings as discussed above.
--- NOTE | 2017-01-04 12:38 | RAD ---
HISTORY: evalaute for obstruction, ileus COMPARISON: No prior. FINDINGS: BOWEL: Normal. No obstruction. No free air. BONES: Normal. OTHER FINDINGS: There is some contrast in the bladder and renal collecting systems. No obstruction IMPRESSION: No active disease.
--- NOTE | 2017-01-04 16:34 | US ---
HISTORY: evalaute for gallstones, ascites COMPARISON: Abdomen pelvis CT examination 01/04/2017. TECHNIQUE: Sonographic evaluation of the abdomen. FINDINGS: LIVER: Measures 14.5 cm. Normal echogenicity of the liver parenchyma. No mass. No intrahepatic bile duct dilatation. GALLBLADDER: The gallbladder appears distended and slightly thick-walled which is likely sympathetic relative to the patient's known pancreatitis. No cholelithiasis is identified. COMMON BILE DUCT: Measures 6.4 mm. No stones. No dilatation. PANCREAS: Bowel completely obscures the pancreas. RIGHT KIDNEY: Measures 9.4cm. Normal echogenicity. No calculus, mass, or hydronephrosis. LEFT KIDNEY: Measures 11.1cm. Normal echogenicity. No calculus, mass, or hydronephrosis. SPLEEN: Normal in size and contour. No mass. AORTA: No aneurysmal dilatation. IVC: Unremarkable. OTHER FINDINGS: None. IMPRESSION: Mild mural thickening gallbladder wall is appreciate which is felt to be a function of sympathetic changes relative to pancreatitis. No cholelithiasis is appreciate. Common bile duct is upper limits normal caliber without choledocholithiasis is appreciated. Pancreas is completely obscured by overlying bowel.
[2017-01-05 07:20] LABS: BASO # 0.02 K/mm3 (0.0-2.0); BASO % 0.2 % (0.0-3.0); EOS # 0.1 (0.0-0.7); EOS % 1.6 % (1.5-5.0); GRAN # 6.28 (1.4-6.5); GRAN % 72.9 % (50.0-68.0); HEMOGLOBIN 12.7 gm/dL (14.0-18.0); LYMPH # 1.3 (1.2-3.4); LYMPH % 15.3 % (22.0-35.0); MEAN CELL VOLUME 79.4 fL (80.0-105.0); MEAN CORPUSCULAR HEMOGLOBIN 27.3 pg (25.0-35.0); MEAN CORPUSCULAR HGB CONC 34.4 g/dl (31.0-37.0); MEAN PLATELET VOLUME 11.2 fl (7.0-11.0); MONO # 0.9 (0.1-0.6); PLATELET COUNT 174 10^3/uL (120.0-450.0); RBC 4.65 10^6/uL (3.5-6.1); RED CELL DISTRIBUTION WIDTH 13.4 % (11.5-14.5); WHITE BLOOD COUNT 8.6 10^3/ul (4.5-11.0)
[2017-01-05 07:34] LABS: ALB/GLOB RATIO 1.3 (1.1-1.8); ALT/SGPT 19 U/L (7-56); AMYLASE 697 U/L (35-125); AST/SGOT 21 U/L (15-59); BILIRUBIN,DIRECT 0.3 mg/dL (0.0-0.4); BLOOD UREA NITROGEN 6 mg/dL (7-21); CALCIUM 9.3 mg/dL (8.4-10.5); GFR AFRICAN-AMERICAN > 60; GFR NON-AFRICAN AMERICAN > 60; LIPASE 1921 U/L (23-300); MAGNESIUM 1.7 mg/dL (1.7-2.2)
--- NOTE | 2017-01-05 07:54 | CP.PCM.PN ---
Subjective - Date & Time of Evaluation Date of Evaluation: 01/05/17 Time of Evaluation: 07:54 - Subjective Subjective: Medicine Progress Note Patient seen and examined at bedside. There were no acute overnight events. He reports having abdominal pain that is worse when he coughs. He denies n/v/d and is having regular BM. He reported to the surgical grinder set up operator internal that he was SOB yesterday. He denies CP, fever/chills, numbness/tingling. Objective - Vital Signs/Intake and Output Vital Signs (last 24 hours): Temp Pulse Resp BP Pulse Ox 98.3 F 110 H 22 149/97 H 94 L 01/04/17 16:00 01/04/17 16:00 01/04/17 16:00 01/04/17 16:00 01/04/17 16:00 Intake and Output: 01/05/17 01/05/17 06:59 18:59 Intake Total 780 Output Total 2550 Balance -1770 - Medications Medications: Current Medications Atorvastatin Calcium (Lipitor) 40 mg PO DIN [facility] Last Admin: 01/04/17 17:28 Dose: 40 mg Cholecalciferol (Vitamin D) 2,000 iu PO DAILY [facility] Last Admin: 01/04/17 11:00 Dose: 2,000 iu Hydromorphone HCl (Dilaudid) 0.5 mg IVP Q4H PRN PRN Reason: Pain, moderate (4-7) Last Admin: 01/04/17 09:46 Dose: 0.5 mg Lactated Ringer's (Lactated Ringer's) 1,000 mls @ 150 mls/hr IV .Q6H40M [facility] Last Admin: 01/04/17 17:29 Dose: 150 mls/hr Nicotine (Nicoderm Cq) 1 patch TD DAILY [facility] Last Admin: 01/04/17 09:47 Dose: 1 patch Ondansetron HCl (Zofran Inj) 4 mg IVP Q4H PRN PRN Reason: Nausea/Vomiting Pantoprazole Sodium (Protonix Inj) 40 mg IVP Q12 [facility] Last Admin: 01/04/17 22:28 Dose: 40 mg Polyethylene Glycol (Miralax) 17 gm PO DAILY [facility] Last Admin: 01/04/17 09:47 Dose: 17 gm - Labs Labs: 01/05/17 06:45 01/05/17 06:45 PT 11.6 Seconds (9.9-11.8) 01/03/17 06:00 INR 1.07 (0.93-1.08) 01/03/17 06:00 APTT 25.1 Seconds (23.7-30.8) 01/03/17 06:00 - Constitutional Appears: No Acute Distress - Head Exam Head Exam: ATRAUMATIC, NORMAL INSPECTION, NORMOCEPHALIC - Eye Exam Eye Exam: Normal appearance, PERRL Pupil Exam: NORMAL ACCOMODATION, PERRL - ENT Exam ENT Exam: Mucous Membranes Moist - Neck Exam Neck Exam: Full ROM - Respiratory Exam Respiratory Exam: Clear to Ausculation Bilateral, NORMAL BREATHING PATTERN. absent: Rales, Rhonchi, Wheezes - Cardiovascular Exam Cardiovascular Exam: Tachycardia, REGULAR RHYTHM, +S1, +S2. absent: Gallop, Rubs, Murmur - GI/Abdominal Exam GI & Abdominal Exam: Distended, Tenderness (RUQ), Normal Bowel Sounds. absent: Rigid, Mass, Rebound - Extremities Exam Extremities Exam: Normal Inspection. absent: Calf Tenderness, Pedal Edema - Neurological Exam Neurological Exam: Alert, Awake, CN II-XII Intact, Oriented x3 - Psychiatric Exam Psychiatric exam: Normal Affect, Normal Mood - Skin Skin Exam: Dry, Intact, Normal Color, Warm Assessment and Plan - Assessment and Plan (Free Text) Assessment: This is a 56Y AA M with PMH HTN, chronic pancreatitis secondary to alcohol use admitted for acute on chronic pancreatitis. Plan: 1. Acute on chronic pancreatitis - Hx of pancreatic psuedocyst- Pt was supposed to f/u with GI as outpt, but did not - CT on 01/03 showed pancreatic pseudocyst with new cysts and calcification in pancreas - Repeat CT abd/pelv with IV/PO showed progression of acute pancreatitis - GI consulted-recs appreciated - Abd U/S showed mild mural thickening of GB probably secondary to pancreatitis. - Abd XR showed no active disease - LR @100 and Clear liquid diet - Zofran prn nausea, Miralax for constipation, Dilaudid prn for pain - Surgery reports no intervention at this time. Continue conservative management 2. Dyslipidemia - Continue Lipitor 3. Tachycardia - EKG showed sinus tachy - Consider starting B-mikala - CXR showed new pleural effusion when compared to previous - Echo ordered - BNP normal, Troponin normal 4. Hx of HTN - Normotensive since admission - Clonidine 0.1 q6h prn SBP >170 and diastolic BP >100 5. Tobacco abuse - Nicotine patch - Counseled on smoking cessation 6. Hx of alcohol abuse - thiamine, Folic acid, multivitamin 7. Vit D deficiency - Continue Vit D GI PPX: Protonix DVT ppx: SCDs Dispo: Pt will be d/c home once medically stable. Case seen, discussed and reviewed with Dr. Sushant Hickey PGY2
[2017-01-05] MEDS: Lactated Ringer's 1,000 ML IV SCH ×3 (08:31→22:36)
--- NOTE | 2017-01-05 08:52 | CP.PCM.PN ---
Subjective - Date & Time of Evaluation Date of Evaluation: 01/05/17 Time of Evaluation: 06:50 - Subjective Subjective: Surgery Progress note Dr. Dee Patient seen and examined at bedside. Besides the abdominal pain that patient experiences when drinking liquids, is tolerating diet. Patient admits to shortness of breath. Denies fever, chills, chest pain, N/V. 12 point review of systems negative except as indicated on the HPI. Objective - Vital Signs/Intake and Output Vital Signs (last 24 hours): Temp Pulse Resp BP Pulse Ox 98.3 F 110 H 22 149/97 H 94 L 01/04/17 16:00 01/04/17 16:00 01/04/17 16:00 01/04/17 16:00 01/04/17 16:00 Intake and Output: 01/05/17 01/05/17 06:59 18:59 Intake Total 780 Output Total 2550 Balance -1770 - Medications Medications: Current Medications Atorvastatin Calcium (Lipitor) 40 mg PO DIN [facility] Last Admin: 01/04/17 17:28 Dose: 40 mg Cholecalciferol (Vitamin D) 2,000 iu PO DAILY [facility] Last Admin: 01/04/17 11:00 Dose: 2,000 iu Hydromorphone HCl (Dilaudid) 0.5 mg IVP Q4H PRN PRN Reason: Pain, moderate (4-7) Last Admin: 01/04/17 09:46 Dose: 0.5 mg Lactated Ringer's (Lactated Ringer's) 1,000 mls @ 150 mls/hr IV .Q6H40M [facility] Last Admin: 01/05/17 08:31 Dose: 150 mls/hr Nicotine (Nicoderm Cq) 1 patch TD DAILY [facility] Last Admin: 01/04/17 09:47 Dose: 1 patch Ondansetron HCl (Zofran Inj) 4 mg IVP Q4H PRN PRN Reason: Nausea/Vomiting Pantoprazole Sodium (Protonix Inj) 40 mg IVP Q12 [facility] Last Admin: 01/04/17 22:28 Dose: 40 mg Polyethylene Glycol (Miralax) 17 gm PO DAILY [facility] Last Admin: 01/04/17 09:47 Dose: 17 gm - Labs Labs: 01/05/17 06:45 01/05/17 06:45 PT 11.6 Seconds (9.9-11.8) 01/03/17 06:00 INR 1.07 (0.93-1.08) 01/03/17 06:00 APTT 25.1 Seconds (23.7-30.8) 01/03/17 06:00 - Constitutional Appears: Well - Head Exam Head Exam: ATRAUMATIC, NORMAL INSPECTION, NORMOCEPHALIC - Eye Exam Eye Exam: EOMI, Normal appearance - Respiratory Exam Respiratory Exam: NORMAL BREATHING PATTERN. absent: Rhonchi, Wheezes - Cardiovascular Exam Cardiovascular Exam: REGULAR RHYTHM, RRR, +S1, +S2 - GI/Abdominal Exam GI & Abdominal Exam: Distended, Tenderness. absent: Guarding, Hyperactive Bowel Sounds - Neurological Exam Neurological Exam: Alert, Awake, Oriented x3 - Skin Skin Exam: Normal Color, Warm Assessment and Plan - Assessment and Plan (Free Text) Plan: 1. Abdominal Pain; Acute on Chronic Pancreatitis; Pancreatic Pseudocyst with new cysts and calcification in pancreas - Repeat CT abd/pelv with IV/PO contrast : mild interval progression of pancreatitis with peripancreatic reaction w/o large fluid collection. Cannot exclude neoplasm. - GI consulted-recs appreciated - Abd U/S: gallbladder thickening secondary to pancreatitis. No cholelithiasis appreciated. Pancreas non visualized due to overlying bowel. - Continue LR @150 and NPO - Lipase trending up - Zofran prn nausea - Dilaudid prn for pain Kenny Blas D.O. PGY1
[2017-01-05] MEDS: POLYETHYLENE GLYCOL 3350 17 GM/Dose PACKET PO SCH (09:34)
--- NOTE | 2017-01-05 10:17 | CP.PCM.PN ---
<SemajRosalina - Last Filed: 01/05/17 10:14> Subjective - Date & Time of Evaluation Date of Evaluation: 01/05/17 Time of Evaluation: 10:14 - Subjective Subjective: Gastroenterology Fellow/PGY5 Progress Note Patient notes improving epigastric pain only present with taking a deep breath or coughing. Tolerated clear liquids and notes some discomfort with full liquids this morning. Notes bowel movement yesterday. A 12-point review of systems negative except for as above. Objective - Vital Signs/Intake and Output Vital Signs (last 24 hours): Temp Pulse Resp BP Pulse Ox 99.4 F 109 H 20 115/88 93 L 01/05/17 08:00 01/05/17 08:00 01/05/17 08:00 01/05/17 08:00 01/05/17 08:00 Intake and Output: 01/05/17 01/05/17 06:59 18:59 Intake Total 780 Output Total 2550 Balance -1770 - Medications Medications: Current Medications Atorvastatin Calcium (Lipitor) 40 mg PO DIN [facility] Last Admin: 01/04/17 17:28 Dose: 40 mg Cholecalciferol (Vitamin D) 2,000 iu PO DAILY [facility] Last Admin: 01/05/17 09:34 Dose: 2,000 iu Hydromorphone HCl (Dilaudid) 0.5 mg IVP Q4H PRN PRN Reason: Pain, moderate (4-7) Last Admin: 01/04/17 09:46 Dose: 0.5 mg Lactated Ringer's (Lactated Ringer's) 1,000 mls @ 100 mls/hr IV .Q10H [facility]PL[facility] Nicotine (Nicoderm Cq) 1 patch TD DAILY [facility] Last Admin: 01/05/17 09:45 Dose: Not Given Ondansetron HCl (Zofran Inj) 4 mg IVP Q4H PRN PRN Reason: Nausea/Vomiting Pantoprazole Sodium (Protonix Inj) 40 mg IVP Q12 [facility] Last Admin: 01/05/17 09:33 Dose: 40 mg Polyethylene Glycol (Miralax) 17 gm PO DAILY [facility] Last Admin: 01/05/17 09:34 Dose: 17 gm - Labs Labs: 01/05/17 06:45 01/05/17 06:45 PT 11.6 Seconds (9.9-11.8) 01/03/17 06:00 INR 1.07 (0.93-1.08) 01/03/17 06:00 APTT 25.1 Seconds (23.7-30.8) 01/03/17 06:00 - Constitutional Appears: Non-toxic, No Acute Distress - Head Exam Head Exam: ATRAUMATIC, NORMOCEPHALIC - Eye Exam Eye Exam: EOMI, PERRL Pupil Exam: PERRL. absent: Miosis, Mydriatic - ENT Exam ENT Exam: Mucous Membranes Moist, Normal Oropharynx - Neck Exam Neck Exam: Full ROM, Normal Inspection - Respiratory Exam Respiratory Exam: Clear to Ausculation Bilateral. absent: Rales, Rhonchi, Wheezes - Cardiovascular Exam Cardiovascular Exam: RRR, +S1, +S2. absent: Gallop, Rubs - GI/Abdominal Exam GI & Abdominal Exam: Soft, Tenderness, Normal Bowel Sounds. absent: Distended, Firm, Guarding, Rigid, Organomegaly, Rebound Additional comments: mild epigastric tenderness to palpation - Extremities Exam Extremities Exam: Full ROM. absent: Pedal Edema - Neurological Exam Neurological Exam: Alert, Awake - Psychiatric Exam Psychiatric exam: Normal Affect, Normal Mood - Skin Skin Exam: Dry, Intact, Normal Color, Warm Assessment and Plan - Assessment and Plan (Free Text) Assessment: 56 year old male with history of Hypertension, Alcohol abuse (endorsed sobriety since 08/2016), and recurrent alcoholic pancreatitis ( last episode 08/2016) presenting with abdominal pain. Active treatment of acute on chronic pancreatitis. CT A/P IV contrast showed pancreatic head 3.2cm pseudocyst ( increased internal density), uncinate process increased densities (likely new pseudocysts), and pancreatic duct dilatation. No prior endoscopic evaluation. Plan: >abdominal U/S - no gallstones >obstructive series- no acute pathology >continue gentlye IVFs until tolerated diet >full liquid diet, advance to low fat diet as tolerated >supportive care: pain control, anti-emetics, PPI >continue Miralax daily >will benefit from outpatient follow up of chronic pancreatitis and pseudocyst with repeat CT in 1-2 months and EUS > will benefit from elective outpatient colonoscopy for colorectal cancer screening -family history of colon cancer >will follow clinical course <Presley Lynch MD - Last Filed: 01/05/17 12:11> Objective - Vital Signs/Intake and Output Vital Signs (last 24 hours): Temp Pulse Resp BP Pulse Ox 99.4 F 109 H 20 127/95 H 93 L 01/05/17 08:00 01/05/17 08:00 01/05/17 08:00 01/05/17 10:44 01/05/17 08:00 Intake and Output: 01/05/17 01/05/17 06:59 18:59 Intake Total 780 120 Output Total 2550 Balance -1770 120 - Medications Medications: Current Medications Atorvastatin Calcium (Lipitor) 40 mg PO DIN [facility]PL[facility] Last Admin: 01/04/17 17:28 Dose: 40 mg Cholecalciferol (Vitamin D) 2,000 iu PO DAILY [facility] Last Admin: 01/05/17 09:34 Dose: 2,000 iu Hydromorphone HCl (Dilaudid) 0.5 mg IVP Q4H PRN PRN Reason: Pain, moderate (4-7) Last Admin: 01/04/17 09:46 Dose: 0.5 mg Lactated Ringer's (Lactated Ringer's) 1,000 mls @ 100 mls/hr IV .Q10H [facility]PL[facility] Last Admin: 01/05/17 10:43 Dose: 100 mls/hr Nicotine (Nicoderm Cq) 1 patch TD DAILY [facility] Last Admin: 01/05/17 09:45 Dose: Not Given Ondansetron HCl (Zofran Inj) 4 mg IVP Q4H PRN PRN Reason: Nausea/Vomiting Pantoprazole Sodium (Protonix Inj) 40 mg IVP Q12 [facility] Last Admin: 01/05/17 09:33 Dose: 40 mg Polyethylene Glycol (Miralax) 17 gm PO DAILY [facility] Last Admin: 01/05/17 09:34 Dose: 17 gm - Labs Labs: 01/05/17 06:45 01/05/17 06:45 PT 11.6 Seconds (9.9-11.8) 01/03/17 06:00 INR 1.07 (0.93-1.08) 01/03/17 06:00 APTT 25.1 Seconds (23.7-30.8) 01/03/17 06:00 Attending/Attestation - Attestation I have personally seen and examined this patient.: Yes I have fully participated in the care of the patient.: Yes I have reviewed all pertinent clinical information, including history, physical exam and plan: Yes Notes (Text): 01/05/17 12:09 Patient seen with GI fellow on rounds. This is a 56 year old male with h/o EtOH abuse c/b chronic calcific pancreatitis admitted with abdominal pain and small pseudocyst. Not able to tolerate full liquid diet this morning. Will continue IV hydration and pain control. Councelled regarding alcohol cessation. Needs outpatient EUS.
--- NOTE | 2017-01-05 10:31 | RAD ---
HISTORY: SOB COMPARISON: 01/03/2017 FINDINGS: LUNGS: No active pulmonary disease. PLEURA: Small left effusion CARDIOVASCULAR: Mild cardiomegaly OSSEOUS STRUCTURES: No significant abnormalities. VISUALIZED UPPER ABDOMEN: Normal. OTHER FINDINGS: None. IMPRESSION: Small left pleural effusion
[2017-01-05 12:07] LABS: B-TYPE NATRIURETIC PEPTIDE 330 pg/mL (0-450)
[2017-01-05 12:08] LABS: TROPONIN I < 0.01 ng/mL
[2017-01-05] MEDS: Thiamine 100 mg/ml Inj IM SCH ×2 (12:39→13:39)
[2017-01-05] MEDS ORDERED: Potassium Chloride 20 mEq ER Tab PO STA (13:30)
[2017-01-05] MEDS ORDERED: Magnesium Sulfate 1 gm in D5W 1 GM/100 ML BAG IVPB ONE (13:30)
--- NOTE | 2017-01-05 13:39 | CON ---
DATE: 01/05/2017 HISTORY OF PRESENT ILLNESS: The patient is a 56-year-old male, who presents with pancreatitis. The patient has had previous alcoholic-related pancreatitis in the past. Currently, it appears he now has a pseudocyst. PAST MEDICAL HISTORY: The patient's past medical history is notable for heavy smoker with chronic COPD. No previous cardiac history in the past. Today he was noted to be tachycardic and mildly dyspneic. He also complained of abdominal pain. After pain medication, the patient is calm, the heart rate is 108 and his breathing is at his baseline. No diabetes mellitus noted. SOCIAL HISTORY: The patient is an active smoker and an active drinker until 2 weeks ago. REVIEW OF SYSTEMS: A 14-point review of systems was reviewed in detail. No cardiac symptomatology is noted. PHYSICAL EXAMINATION VITAL SIGNS: Stable, heart rate is 108. NECK: Negative JVD. LUNGS: Without rales. HEART: Reveals S1, S2. EXTREMITIES: Without edema. EKG is within normal limits. LABORATORY DATA: Laboratories include lipase and amylase which are increased. IMPRESSION: 1. Acute pancreatitis on top of chronic pancreatitis. 2. Chronic pancreatitis. 3. Chronic obstructive pulmonary disease. 4. Sinus tachycardia, likely due to above. 5. No evidence for congestive heart failure. Given these findings, we will obtain an echocardiogram to evaluate LV function. The patient should be continued to be treated for his pancreatitis. Grady Anguiano MD
--- NOTE | 2017-01-05 15:51 | PN ---
DATE: 01/05/2017 SUBJECTIVE: The patient is seen in room #573, bed 3. The patient is seen sitting in the bed. The patient is alert, awake, and responsive. Overnight nurses' notes were reviewed. The patient's heart rate was found to be elevated in the morning. The patient was in sinus tachycardia. EKG was done. PHYSICAL EXAMINATION: VITAL SIGNS: T-max is 99.4. Heart rate 110, 109, 104. Blood pressure 127/95, 115/88, 149/97, 124/91. Respirations 20. O2 saturation 93% to 94% to 97%. HEENT: Head examination is normocephalic and atraumatic. HEENT examination shows pinkish pale conjunctivae, dry oral mucosa; positive vitiligo noted. CHEST: Kyphosis. LUNGS: Shows occasional rhonchi. Questionable decreased breath sound at the bases. CARDIOVASCULAR: S1 and S2, regular rhythm. ABDOMEN: Slightly less distended as yesterday. Positive decreased bowel sounds. No rebound tenderness. No costovertebral angle tenderness. GENITALIA: Male. RECTAL: Deferred. EXTREMITIES: Show no pitting edema. No calf tenderness or Homans sign. NEUROLOGIC: The patient is alert, awake,and responsive. Gait examination is not tested. MUSCULOSKELETAL: Shows a body mass index of 26. NEUROLOGIC: There is no gross deficit noted. VASCULAR: Palpable pulses. DIAGNOSTIC DATA: From 01/05/2017, WBC 8.6, hemoglobin and hematocrit 12.7 and 37, platelet 174, granulocytes 73%. Sodium 137, potassium 3.7, chloride 98, CO2 of 28, anion gap 15, BUN 6, creatinine 0.8, GFR greater than 60, glucose 93, calcium 9.3, magnesium 1.7, total bili 1.5. Rest of the LFTs and cardiac enzyme negative. Amylase 697, lipase 1921. Hepatitis, HIV, serology negative. The patient had an Abdomen and pelvic CAT scan, abdominal sonogram, KUB, and chest x-ray, which were reviewed. EKG from today shows sinus rhythm, sinus tachy, wave inversion, and lead III aVF. IMPRESSION AND PLAN: 1. Acute on chronic pancreatitis. 2. Sinus tachycardia, etiology undetermined. 3. Bilateral bibasilar atelectasis with increasing bibasilar atelectasis. 4. Hiatal hernia. 5. Intrahepatic biliary ductal dilatation. 6. Distended gallbladder with vicarious excretion of iodine contrast. 7. Sympathetic gallbladder wall mural thickening secondary to the distal body related to pancreatitis. 8. Chronic pancreatitis with acute pancreatitis with moderate peripancreatic reaction and possible ill-defined lucency at the neck of the pancreas. 9. Pancreatic ductal dilatation. 10. Sympathetic thickening of the lesser curvature of the stomach. 11. Trace ascites secondary to pancreatitis. 12. Prostatomegaly. 13. Mild interval progression of pancreatitis with peripancreatic reaction with the lucency at the pancreatic neck and a possible complex pseudocyst. 14. Sympathetic gallbladder wall thickening. 15. Possible common bile duct dilatation. 16. Mild cardiomegaly. 17. Small left pleural effusion. 18. Tachycardia. 19. History of hypertension. 20. Normocytic anemia. 21. Granulocytosis. 22. Relative hypokalemia. 23. Acute on chronic pancreatitis with elevate amylase and lipase. 24. Hypovitaminosis D. 25. Hypercholesterolemia. 26. Trace proteinuria. 27. History of alcohol abuse with history of recurrent alcoholic pancreatitis and recurrent abdominal pain. 28. Recurrent pancreatic pseudocyst with pancreatic ductal dilatation. 29. Prostatic hypertrophy. 30. History of depression. 31. History of nicotine and alcohol abuse. PLAN: At this time, the patient has been ordered serial labs. GI surgery, Cardiology consultations are on board. The patient is on Benadryl 25 mg twice a day p.r.n., clonidine 0.1 q. 6 p.r.n.,Celexa 20 mg daily; Dilaudid 0.5 mg IV q.4 p.r.n. The patient is started on Flomax 0.4 mg daily; folic acid 1 mg daily. The patient is ordered potassium 20 and 40 mEq because of relative hypokalemia. Ringer's lactate at 150 mL an hour. The patient was given Lasix 20 IV times one dose. Lipitor 40 mg daily; Lopressor 25 twice a day; magnesium sulfate 1 g as ordered; Miralax 17 g daily; nicotine patch 21 mg daily; Protonix 40 IV q. 12; multivitamin, thiamine 100 mg daily; vitamin D3 2000 units daily; Zofran 4 mg IV q. 4 p.r.n., the patient is on spirometry. Echo with Doppler ordered. The patient is on liquid diet. The patient has been ordered out of bed, HELEN stocking, SCDs, occupational therapy, and physical therapy ordered. The patient has been updated about his test result and recommendation for further management and treatment was explained to the patient at length and all questions and concerns answered, which he acknowledged and understood. Dictated and electronically signed, not read. Nilesh Canchola MD
--- NOTE | 2017-01-05 16:32 | CARD ---
APPROVED REPORT EKG Measurement Heart [id number] <Conclusion> Sinus tachycardia T wave abnormality, consider inferior ischemia
[2017-01-06 07:10] LABS: BASO # 0.02 K/mm3 (0.0-2.0); BASO % 0.2 % (0.0-3.0); EOS # 0.1 (0.0-0.7); EOS % 1.3 % (1.5-5.0); GRAN % 72.6 % (50.0-68.0); HEMOGLOBIN 10.9 gm/dL (14.0-18.0); LYMPH # 1.4 (1.2-3.4); LYMPH % 15.1 % (22.0-35.0); MEAN CELL VOLUME 78.3 fL (80.0-105.0); MEAN CORPUSCULAR HEMOGLOBIN 26.6 pg (25.0-35.0); MEAN PLATELET VOLUME 10.8 fl (7.0-11.0); MONO % 10.8 % (1.0-6.0); PLATELET COUNT 155 10^3/uL (120.0-450.0); RED CELL DISTRIBUTION WIDTH 13.3 % (11.5-14.5)
[2017-01-06 07:22] LABS: ALB/GLOB RATIO 1.1 (1.1-1.8); ALBUMIN 3.2 g/dL (3.0-4.8); ALT/SGPT 16 U/L (7-56); AMYLASE 368 U/L (35-125); AST/SGOT 17 U/L (15-59); BILIRUBIN,DIRECT 0.5 mg/dL (0.0-0.4); BLOOD UREA NITROGEN 9 mg/dL (7-21); CALCIUM 8.4 mg/dL (8.4-10.5); GFR AFRICAN-AMERICAN > 60; GFR NON-AFRICAN AMERICAN > 60; LIPASE 878 U/L (23-300)
--- NOTE | 2017-01-06 07:50 | CP.PCM.PN ---
Subjective - Date & Time of Evaluation Date of Evaluation: 01/06/17 Time of Evaluation: 07:46 - Subjective Subjective: Medicine Progress Note Patient seen and examined at bedside. There were no acute overnight events. He reports feeling sleepy this morning. He reports his abdominal pain has improved. He denies CP, SOB, n/v/d, numbness/tingling, fever or chills. He is having regular BM. Objective - Vital Signs/Intake and Output Vital Signs (last 24 hours): Temp Pulse Resp BP Pulse Ox 98.2 F 106 H 20 114/80 93 L 01/05/17 16:00 01/05/17 18:20 01/05/17 16:00 01/05/17 18:20 01/05/17 16:00 Intake and Output: 01/06/17 01/06/17 06:59 18:59 Intake Total 200 Output Total 300 Balance -100 - Medications Medications: Current Medications Atorvastatin Calcium (Lipitor) 40 mg PO DIN [facility] Last Admin: 01/05/17 16:59 Dose: 40 mg Cholecalciferol (Vitamin D) 2,000 iu PO DAILY [facility] Last Admin: 01/05/17 09:34 Dose: 2,000 iu Citalopram Hydrobromide (Celexa) 20 mg PO DAILY [facility] Last Admin: 01/05/17 13:40 Dose: 20 mg Clonidine HCl (Catapres) 0.1 mg PO Q6H PRN PRN Reason: Systolic Blood Pressure Last Admin: 01/05/17 16:59 Dose: 0.1 mg Diphenhydramine HCl (Benadryl) 25 mg PO BID PRN PRN Reason: Itching / Pruritus Folic Acid (Folic Acid) 1 mg PO DAILY [facility] Last Admin: 01/05/17 13:39 Dose: 1 mg Hydromorphone HCl (Dilaudid) 0.5 mg IVP Q4H PRN PRN Reason: Pain, moderate (4-7) Last Admin: 01/04/17 09:46 Dose: 0.5 mg Lactated Ringer's (Lactated Ringer's) 1,000 mls @ 100 mls/hr IV .Q10H [facility] Last Admin: 01/05/17 22:36 Dose: 100 mls/hr Metoprolol Tartrate (Lopressor) 25 mg PO TID [facility] Multivitamins (Thera Tab) 1 tab PO 0800 [facility] Nicotine (Nicoderm Cq) 1 patch TD DAILY [facility] Last Admin: 01/05/17 09:45 Dose: Not Given Ondansetron HCl (Zofran Inj) 4 mg IVP Q4H PRN PRN Reason: Nausea/Vomiting Pantoprazole Sodium (Protonix Inj) 40 mg IVP Q12 [facility] Last Admin: 01/05/17 22:36 Dose: 40 mg Polyethylene Glycol (Miralax) 17 gm PO DAILY [facility] Last Admin: 01/05/17 09:34 Dose: 17 gm Tamsulosin HCl (Flomax) 0.4 mg PO DAILY [facility] Last Admin: 01/05/17 17:00 Dose: 0.4 mg Thiamine HCl (Vitamin B1 Inj) 100 mg IV DAILY [facility] - Labs Labs: 01/06/17 06:50 01/06/17 06:50 PT 11.6 Seconds (9.9-11.8) 01/03/17 06:00 INR 1.07 (0.93-1.08) 01/03/17 06:00 APTT 25.1 Seconds (23.7-30.8) 01/03/17 06:00 - Constitutional Appears: No Acute Distress - Head Exam Head Exam: ATRAUMATIC, NORMAL INSPECTION, NORMOCEPHALIC - Eye Exam Eye Exam: Normal appearance, PERRL Pupil Exam: NORMAL ACCOMODATION, PERRL - ENT Exam ENT Exam: Mucous Membranes Moist - Neck Exam Neck Exam: Full ROM - Respiratory Exam Respiratory Exam: Clear to Ausculation Bilateral, NORMAL BREATHING PATTERN. absent: Rales, Rhonchi, Wheezes - Cardiovascular Exam Cardiovascular Exam: REGULAR RHYTHM, +S1, +S2. absent: Gallop, Rubs, Murmur - GI/Abdominal Exam GI & Abdominal Exam: Distended, Tenderness (RUQ), Normal Bowel Sounds. absent: Rigid, Rebound - Extremities Exam Extremities Exam: Normal Inspection. absent: Calf Tenderness, Pedal Edema - Neurological Exam Neurological Exam: Alert, Awake, CN II-XII Intact, Oriented x3 - Psychiatric Exam Psychiatric exam: Normal Affect, Normal Mood - Skin Skin Exam: Dry, Intact, Normal Color, Warm Additional comments: vitiligo Assessment and Plan - Assessment and Plan (Free Text) Assessment: This is a 56Y AA M with PMH HTN, chronic pancreatitis secondary to alcohol use admitted for acute on chronic pancreatitis. Pt is scheduled for EUS today. Plan: 1. Acute on chronic pancreatitis - Hx of pancreatic psuedocyst - EUS planned for the am as per GI - GI consulted-recs appreciated - LR @100 - Zofran prn nausea, Miralax for constipation, Dilaudid prn for pain - Surgery reports no intervention at this time - Amylase and lipase trending down 2. Pleural effusion - secondary to IV fluids v CHF - EKG showed sinus tachy - Lopressor increased from BID to TID - Echo showed EF 61%, normal LV function, pulmonic valve not well visualized - BNP normal, Troponin normal 3. Anemia - Dilautional v. iron def - Hgb 10.9, MCV: 78 - Pt was recommended to get outpt colonoscopy - Continue to monitor 4. Dyslipidemia - Continue Lipitor 5. Hx of HTN - Lopressor TID - Clonidine 0.1 q6h prn SBP >170 and diastolic BP >100 6. Tobacco abuse - Nicotine patch - Counseled on smoking cessation 7. Hx of alcohol abuse - Counseled on alcohol cessation - Thiamine, Folic acid, multivitamin - Hep C and HIV negative 8. Vit D deficiency - Continue Vit D 9. Hx of Depression - Continue Celexa GI PPX: Protonix DVT ppx: SCDs Dispo: EUS planned for today. Pt will be d/c home once medically stable. Case seen, discussed and reviewed with Dr. Sushant Hickey PGY2
[2017-01-06] MEDS: Lactated Ringer's 1,000 ML IV SCH (08:29)
[2017-01-06] MEDS: Thiamine 100 mg/ml Inj IV SCH (09:08)
--- NOTE | 2017-01-06 09:18 | CARD ---
APPROVED REPORT EXAM: Two-dimensional and M-mode echocardiogram with Doppler and color Doppler. Other Information Quality : AverageRhythm : INDICATION NEW ONSET CHF? 2D DIMENSIONS Left Atrium (2D)3.5 (1.6-4.0cm)IVSd0.8 (0.7-1.1cm) LVDd4.3 (3.9-5.9cm)PWd0.9 (0.7-1.1cm) LVDs2.9 (2.5-4.0cm)FS (%) 32.5 % LVEF (%)61.0 (>50%) M-Mode DIMENSIONS Aortic Root3.60 (2.2-3.7cm)Aortic Cusp Exc.2.20 (1.5-2.0cm) Aortic Valve AoV Peak Rrtmrytu101.0cm/s Mitral Valve MV E Vkesmvmj64.9cm/sMV A Nczlzqeb26.7cm/sE/A ratio0.7 TDI Lateral E' Peak V8.58cm/sMedial E' Peak V5.26cm/sE/Lateral E'7.9 E/Medial E'12.9 Pulmonary Valve PV Peak Wmuykwws10.9cm/sPV Peak Grad.2mmHg Tricuspid Valve TR Peak Rqbonilw368hk/sRAP [id number] Peak Gr.21mmHg [id number] LEFT VENTRICLE The left ventricle is normal size. There is normal left ventricular wall thickness. The left ventricular function is normal. The left ventricular ejection fraction is within the normal range. There is normal LV segmental wall motion. RIGHT VENTRICLE The right ventricle is normal size. ATRIA The left atrium size is normal. The right atrium size is normal. The interatrial septum is intact with no evidence for an atrial septal defect. AORTIC VALVE The aortic valve is normal in structure. MITRAL VALVE The mitral valve is normal in structure. Mitral regurgitation is trace. TRICUSPID VALVE The tricuspid valve is normal in structure. There is trace tricuspid regurgitation. PULMONIC VALVE The pulmonic valve is not well visualized. GREAT VESSELS The aortic root is normal in size. PERICARDIAL EFFUSION There is no pericardial effusion. <Conclusion> The left ventricle is normal size. There is normal left ventricular wall thickness. The left ventricular function is normal.
[2017-01-06 10:40] LABS: % IRON SATURATION 7 % (20-55); IRON 15 ug/dL (45-180); TOTAL IRON BINDING CAPACITY 220 ug/dL (261-462)
--- NOTE | 2017-01-06 11:33 | PN ---
CARDIOLOGY FOLLOWUP DATE: 01/06/2017 SUBJECTIVE: The patient is in bed resting without distress. PHYSICAL EXAMINATION: VITAL SIGNS: Blood pressure 115/83 and heart rate is sinus tachycardia 100. NECK: Negative JVD. HEART: Reveals S1 and S2. LUNGS: Without rales. EXTREMITIES: Without edema. LABORATORY DATA: Hemoglobin is 10.9. Troponins are negative x3. Echocardiogram reveals good LV function. IMPRESSION: 1. Pancreatitis. 2. Questionable pseudocyst. 3. Chronic obstructive pulmonary disease. 4. Sinus tachycardia. 5. No evidence of congestive heart failure. 6. Good left ventricular on echocardiogram. PLAN: Given these findings, no further cardiac workup is indicated at this time. The patient is for GI workup today. Grady Anguiano MD
--- NOTE | 2017-01-06 12:22 | PN ---
DATE: 01/06/2017 SUBJECTIVE: The patient is seen lying in the bed in room 573. The patient reports having bowel movements soft to loose. PHYSICAL EXAMINATION: VITAL SIGNS: T-max is 99.4, heart rate is 102 to 119 yesterday, blood pressure last 24 hour going up to 142/103, 114/80 and 115/83; respirations of 20, O2 saturation averaging mid 90s. INTAKE AND OUTPUT: Does not appear to be correct. HEAD: Normocephalic and atraumatic. HEENT: Shows positive vitiligo. Pinkish-pale conjunctivae. Dry oral mucosa. NECK: No neck rigidity. CHEST: Symmetrical. LUNGS: Shows questionable decreased breath sound at the left base. CARDIOVASCULAR: S1 and S2. Regular rhythm. ABDOMEN: Distended. Positive bowel sound. GENITALIA: Male. RECTAL: Examination is deferred. EXTREMITIES: Shows no pitting edema, no calf tenderness, and no Homans' sign. NEUROLOGICAL: The patient is alert, awake and oriented x3. Cranial nerves II through XII limited. Gait examination could not be tested. The patient is seen by physical therapist yesterday. MUSCULOSKELETAL: Examination shows a body mass index of 26. LABORATORY DATA: Diagnostic on 01/06/2017. WBC of 9.0, hemoglobin and hematocrit of 10.9 and 32.1, and platelets of 155, with granulocytes 76%. Sodium of 136, potassium of 4.0, chloride of 98, CO2 of 28, anion gap of 14, BUN of 9, and creatinine of 0.9. GFR is greater than 60. Glucose is 90, calcium is 8.4, and magnesium is 2.0. Total bilirubin has gone up to 2.1 from 0.8 and direct bilirubin is also come up to 0.5. Troponin is negative. Amylase has gone down to 368 from peak amylase of 697 and lipase is down to 878 from 7763. Echocardiogram; ejection fraction of 61%, right ventricular systolic pressure is normal at 31, normal LV thickness, normal LV size, and trace tricuspid mitral regurgitation. The patient is seen by cardiology. IMPRESSION: 1. Acute recurrent and acute on chronic recurrent pancreatitis with elevated amylase and lipase. 2. Low grade fever. 3. Tachycardia. 4. History of hypertension. 5. Transient hypoxemia. 6. Normocytic anemia with granulocytosis. 7. Hyperbilirubinemia. 8. History of alcohol and nicotine abuse and dependence. 9. Hypovitaminosis D. 10. Trace proteinuria. 11. Bilateral pleural effusion. 12. Sinus tachycardia with inferior T wave inversion. 13. History of hypertension. 14. History of nicotine, alcohol abuse and recurrent alcoholic pancreatitis. 15. History of abdominal pain. 16. Recurrent increasing pancreatic pseudocyst with pancreatic duct dilatation. 17. Reconditioning. 18. Gait dysfunction. 19. Deconditioning. PLAN: At this time, the patient has been ordered serial labs and serial amylase, lipase. Consultation gastroenterology, surgery, and cardiology. Current medication Benadryl 25 mg twice a day. Clonidine 0.1 mg q. 6 hours p.r.n. Celexa 20 mg daily. Dilaudid 0.5 mg IV q. 4 hours. p.r.n. Flomax 0.4 mg daily, folic acid 1 mg daily. Ringer's lactate 100 mL an hour. Lipitor 40 mg daily. Lopressor 25 mg three times a day which is increased today for tachycardia. Nicotine patch 21 mg daily. Protonix 40 mg IV q. 12 hours. Thiamine 100 mg IV daily. Vitamin D3 2000 international unit daily. Zofran 4 mg IV q. 4 hours. p.r.n. The patient is scheduled for EUS yesterday and the patient is n.p.o. The patient has been ordered incentive spirometry out of bed, HELEN stockings and SCDs. Occupational therapy and physical therapy ordered. The patient updated about his condition, diagnosis, treatment plan and management plan, which he acknowledged and understands. The patient's further management will be depended upon the patient's clinical condition, hemodynamic status, as well as the patient's response to therapeutic intervention as per the patient's test results, as per recommendation by all the physicians involved in the care of the patient. Dictated and electronically signed, not read. Signing off, Nilesh Canchola MD. Nilesh Canchola MD
--- NOTE | 2017-01-06 14:05 | CP.PCM.PN ---
Subjective - Date & Time of Evaluation Date of Evaluation: 01/06/17 Time of Evaluation: 14:01 - Subjective Subjective: S: No acute events. No nausea/vomiting. Some abdominal distention and mild pain. Some wheezing. Objective - Vital Signs/Intake and Output Vital Signs (last 24 hours): Temp Pulse Resp BP Pulse Ox 98.6 F 102 H 20 115/83 94 L 01/06/17 07:54 01/06/17 09:06 01/06/17 07:54 01/06/17 09:06 01/06/17 07:54 Intake and Output: 01/06/17 01/06/17 06:59 18:59 Intake Total 200 Output Total 300 Balance -100 - Medications Medications: Current Medications Atorvastatin Calcium (Lipitor) 40 mg PO DIN [facility] Last Admin: 01/05/17 16:59 Dose: 40 mg Cholecalciferol (Vitamin D) 2,000 iu PO DAILY [facility] Last Admin: 01/05/17 09:34 Dose: 2,000 iu Citalopram Hydrobromide (Celexa) 20 mg PO DAILY [facility] Last Admin: 01/05/17 13:40 Dose: 20 mg Clonidine HCl (Catapres) 0.1 mg PO Q6H PRN PRN Reason: Systolic Blood Pressure Last Admin: 01/05/17 16:59 Dose: 0.1 mg Diphenhydramine HCl (Benadryl) 25 mg PO BID PRN PRN Reason: Itching / Pruritus Folic Acid (Folic Acid) 1 mg PO DAILY [facility] Last Admin: 01/05/17 13:39 Dose: 1 mg Hydromorphone HCl (Dilaudid) 0.5 mg IVP Q4H PRN PRN Reason: Pain, moderate (4-7) Last Admin: 01/04/17 09:46 Dose: 0.5 mg Lactated Ringer's (Lactated Ringer's) 1,000 mls @ 100 mls/hr IV .Q10H [facility] Last Admin: 01/06/17 08:29 Dose: 100 mls/hr Metoprolol Tartrate (Lopressor) 25 mg PO TID [facility] Last Admin: 01/06/17 13:04 Dose: Not Given Multivitamins (Thera Tab) 1 tab PO 0800 [facility] Nicotine (Nicoderm Cq) 1 patch TD DAILY [facility] Last Admin: 01/06/17 09:07 Dose: Not Given Ondansetron HCl (Zofran Inj) 4 mg IVP Q4H PRN PRN Reason: Nausea/Vomiting Pantoprazole Sodium (Protonix Inj) 40 mg IVP Q12 [facility] Last Admin: 01/06/17 09:07 Dose: 40 mg Polyethylene Glycol (Miralax) 17 gm PO DAILY [facility] Last Admin: 01/05/17 09:34 Dose: 17 gm Tamsulosin HCl (Flomax) 0.4 mg PO DAILY [facility] Last Admin: 01/05/17 17:00 Dose: 0.4 mg Thiamine HCl (Vitamin B1 Inj) 100 mg IV DAILY [facility] Last Admin: 01/06/17 09:08 Dose: 100 mg - Labs Labs: 01/06/17 06:50 01/06/17 06:50 PT 11.6 Seconds (9.9-11.8) 01/03/17 06:00 INR 1.07 (0.93-1.08) 01/03/17 06:00 APTT 25.1 Seconds (23.7-30.8) 01/03/17 06:00 - Constitutional Appears: Chronically Ill - Head Exam Head Exam: ATRAUMATIC, NORMOCEPHALIC - Eye Exam Eye Exam: absent: Scleral icterus - ENT Exam ENT Exam: absent: Mucous Membranes Moist, Normal Oropharynx - Respiratory Exam Respiratory Exam: Wheezes, NORMAL BREATHING PATTERN - Cardiovascular Exam Cardiovascular Exam: REGULAR RHYTHM, +S1, +S2 - GI/Abdominal Exam GI & Abdominal Exam: Distended, Soft, Tenderness - Neurological Exam Neurological Exam: Alert, Oriented x3 - Psychiatric Exam Psychiatric exam: Normal Affect, Normal Mood - Skin Skin Exam: Dry, Warm Assessment and Plan - Assessment and Plan (Free Text) Assessment: 56 year old male with h/o EtOH abuse c/b chronic calcific pancreatitis admitted with abdominal pain and small pseudocyst. 1. Chronic pancreatitis 2. Pseudocyst Plan: -patient was scheduled for EUS today -he came down to endoscopy -he was assessed by lizzie, but lizzie did not think he was an appropriate candidate for anasthesia at this time for an elective procedure -see Dr. Rodriguez's note for rationale -advance diet to low fat in the meantime -recommend outpatient EUS when the patient has improved respiratory status -etoh / smoking avoidance -pain control as needed
--- NOTE | 2017-01-06 14:07 | CP.PCM.CON ---
History of Present Illness - History of Present Illness History of Present Illness: Patient is a 56 year old male with severe acute pancreatitis (lipase 878). Patient has a history of CVA, HTN, and alcohol abuse. Patient is unstable (O2 saturation = 93% on RA at this time). Patient has very distended and solid abdomen. Patient is ASA class 4 candidate and is very high risk for anesthesia. Risk vs benefit explained to patient and body recall instructor that patient needs to be further optimized before procedure. However, body recall instructor was given option that if he thinks that this is an emergency, we can proceed further without further evaluation and management to optimize the patient condition. Automobile Mechanic Supervisor declared that this is not an emergency at this time. In my opinion, I strongly recommend that this patient needs further evaluation and optimization before this procedure. Past Patient History - Infectious Disease Hx of Infectious Diseases: None - Tetanus Immunizations Tetanus Immunization: Unknown - Past Medical History & Family History Past Medical History?: Yes - Past Social History Smoking Status: Heavy Smoker > 10 Cigarettes Daily - CARDIAC Hx Cardiac Disorders: No Hx Angina: No Hx Circulatory Problems: No Hx Congestive Heart Failure: No Hx Heart Murmur: No Hx Heart Transplant: No Hx Hypercholesterolemia: No Hx Hypertension: Yes Hx Internal Defibrillator: No Hx Mitral Valve Prolapse: No Hx Pacemaker: No Hx Peripheral Edema: No Hx Peripheral Vascular Disease: No - PULMONARY Hx Respiratory Disorders: No Hx Asthma: No Hx Bronchitis: No Hx Chronic Obstructive Pulmonary Disease (COPD): No Hx Emphysema: No Hx Pneumonia: No Hx Respiratory Aspiration: No Hx Respiratory Tract Infection: No Hx Sleep Apnea: No Hx Tuberculosis: No - NEUROLOGICAL Hx Neurological Disorder: No Hx Alzheimer's Disease: No HX Cerebrovascular Accident: Yes (2012) Hx Dementia: No Hx Dizziness: No Hx Meningitis: No Hx Migraine: No Hx Parkinson's Disease: No Hx Seizures: No Hx Transient Ischemic Attacks (TIA): No - HEENT Hx HEENT Problems: Yes (Visual deficit) Hx Blind: No Hx Cataracts: No Hx Deafness: No Hx Difficulty Chewing: No Hx Epistaxis: No Hx Glaucoma: No Hx Macular Degeneration: No - RENAL Hx Chronic Kidney Disease: No Hx Dialysis: No Hx Kidney Stones: No Hx Neurogenic Bladder: No Hx Pyelonephritis: No Hx Renal (Kidney) Cancer: No Hx Renal Failure: No - ENDOCRINE/METABOLIC Hx Endocrine Disorders: No Hx Adrenal Cancer: No Hx Diabetes Insipidus: No Hx Diabetes Mellitus Type 1: No Hx Diabetes Mellitus Type 2: No Hx Hyperthyroidism: No Hx Hypothyroidism: No Hx Systemic Lupus Erythematosus: No - HEMATOLOGICAL/ONCOLOGICAL Hx Blood Transfusions: No Hx Blood Transfusion Reaction: No - INTEGUMENTARY Hx Dermatological Problems: Yes (Vitiligo) Hx Basil Cell: No Hx Eczema: No Hx Melanoma: No Hx Psoriasis: No Hx Squamous Cell: No - MUSCULOSKELETAL/RHEUMATOLOGICAL Hx Musculoskeletal Disorders: No Hx Arthritis: Yes Hx Back Pain: Yes Hx Degenerative Joint Disease: No Hx Falls: No Hx Fractures: No Hx Gout: No Hx Herniated Disk: No Hx Myasthenia Gravis: No Hx Osteoarthritis: Yes Hx Osteomyelitis: No Hx Osteoporosis: No Hx Rhabdomyolysis: No Hx Spinal Stenosis: No Hx Unsteady Gait: No - GASTROINTESTINAL Hx Gastrointestinal Disorders: Yes Hx Colostomy: No Hx Crohn's Disease: No Hx Diverticulitis: No Hx Gall Bladder Disease: No Hx Gastroesophageal Reflux: No Hx Ileostomy: No Hx Liver Failure: No Hx Pancreatitis: Yes HX Swallowing Problems: No Hx Ulcer: No - GENITOURINARY/GYNECOLOGICAL Hx Genitourinary Disorders: No Hx Hematuria: No Hx Incontinence: No Hx Prostate Problems: No Hx Sexually Transmitted Disorders: No Hx Urinary Tract Infection: No - PSYCHIATRIC Hx Psychophysiologic Disorder: No Hx Anxiety: No Hx Bipolar Disorder: No Hx Depression: No Hx Emotional Abuse: No Hx Hallucinations: No Hx Panic Symptoms: No Hx Paranoia: No Hx Post Traumatic Stress Disorder: No Hx Psychosis: No Hx Physical Abuse: No Hx Schizophrenia: No Hx Sexual Abuse: No Hx Substance Use: Yes - SURGICAL HISTORY Hx Surgeries: Yes - ANESTHESIA Hx Anesthesia Reactions: No Hx Malignant Hyperthermia: No Meds Allergies/Adverse Reactions: Allergies Allergy/AdvReac Type Severity Reaction Status Date / Time banana Allergy ANAPHYLAXIS Verified 01/03/17 05:51 grape Allergy ANAPHYLAXIS Verified 01/03/17 05:51 PEACHES Allergy ITCHING Uncoded 01/06/17 12:48 - Medications Medications: Current Medications Atorvastatin Calcium (Lipitor) 40 mg PO DIN [facility] Last Admin: 01/05/17 16:59 Dose: 40 mg Cholecalciferol (Vitamin D) 2,000 iu PO DAILY [facility] Last Admin: 01/05/17 09:34 Dose: 2,000 iu Citalopram Hydrobromide (Celexa) 20 mg PO DAILY [facility] Last Admin: 01/05/17 13:40 Dose: 20 mg Clonidine HCl (Catapres) 0.1 mg PO Q6H PRN PRN Reason: Systolic Blood Pressure Last Admin: 01/05/17 16:59 Dose: 0.1 mg Diphenhydramine HCl (Benadryl) 25 mg PO BID PRN PRN Reason: Itching / Pruritus Folic Acid (Folic Acid) 1 mg PO DAILY [facility] Last Admin: 01/05/17 13:39 Dose: 1 mg Hydromorphone HCl (Dilaudid) 0.5 mg IVP Q4H PRN PRN Reason: Pain, moderate (4-7) Last Admin: 01/04/17 09:46 Dose: 0.5 mg Lactated Ringer's (Lactated Ringer's) 1,000 mls @ 100 mls/hr IV .Q10H [facility] Last Admin: 01/06/17 08:29 Dose: 100 mls/hr Metoprolol Tartrate (Lopressor) 25 mg PO TID [facility] Last Admin: 01/06/17 13:04 Dose: Not Given Multivitamins (Thera Tab) 1 tab PO 0800 [facility] Nicotine (Nicoderm Cq) 1 patch TD DAILY [facility] Last Admin: 01/06/17 09:07 Dose: Not Given Ondansetron HCl (Zofran Inj) 4 mg IVP Q4H PRN PRN Reason: Nausea/Vomiting Pantoprazole Sodium (Protonix Inj) 40 mg IVP Q12 [facility] Last Admin: 01/06/17 09:07 Dose: 40 mg Polyethylene Glycol (Miralax) 17 gm PO DAILY [facility] Last Admin: 01/05/17 09:34 Dose: 17 gm Tamsulosin HCl (Flomax) 0.4 mg PO DAILY [facility] Last Admin: 01/05/17 17:00 Dose: 0.4 mg Thiamine HCl (Vitamin B1 Inj) 100 mg IV DAILY [facility] Last Admin: 01/06/17 09:08 Dose: 100 mg Results - Vital Signs Recent Vital Signs: Last Vital Signs Temp 98.6 F 01/06/17 07:54 Pulse 102 H 01/06/17 09:06 Resp 20 01/06/17 07:54 BP 115/83 01/06/17 09:06 Pulse Ox 94 L 01/06/17 07:54 - Labs Result Diagrams: 01/06/17 06:50 01/06/17 06:50 Labs: Laboratory Results - last 24 hr 01/05/17 01/05/17 01/06/17 19:30 23:45 06:50 WBC 9.0 RBC 4.10 Hgb 10.9 L Hct 32.1 L MCV 78.3 L MCH 26.6 MCHC 34.0 RDW 13.3 Plt Count 155 MPV 10.8 Gran % 72.6 H Lymph % (Auto) 15.1 L [place] % (Auto) 10.8 H Eos % (Auto) 1.3 L Baso % (Auto) 0.2 Gran # 6.50 Lymph # 1.4 [place] # 1.0 H Eos # 0.1 Baso # 0.02 Sodium Potassium Chloride Carbon Dioxide Anion Gap BUN Creatinine Est GFR ( Amer) Est GFR (Non-Af Amer) Random Glucose Calcium Magnesium Iron TIBC % Saturation Total Bilirubin Direct Bilirubin AST ALT Alkaline Phosphatase Troponin I < 0.01 < 0.01 Total Protein Albumin Globulin Albumin/Globulin Ratio Amylase Lipase Blood Type Antibody Screen BBK History Checked 01/06/17 01/06/17 01/06/17 06:50 08:40 10:30 WBC RBC Hgb Hct MCV MCH MCHC RDW Plt Count MPV Gran % Lymph % (Auto) [place] % (Auto) Eos % (Auto) Baso % (Auto) Gran # Lymph # [place] # Eos # Baso # Sodium 136 Potassium 4.0 Chloride 98 Carbon Dioxide 28 Anion Gap 14 BUN 9 Creatinine 0.9 Est GFR ( Amer) > 60 Est GFR (Non-Af Amer) > 60 Random Glucose 90 Calcium 8.4 Magnesium 2.0 Iron 15 L TIBC 220 L % Saturation 7 L Total Bilirubin 2.1 H Direct Bilirubin 0.5 H AST 17 ALT 16 Alkaline Phosphatase 70 Troponin I Total Protein 6.1 Albumin 3.2 Globulin 2.9 Albumin/Globulin Ratio 1.1 Amylase 368 H Lipase 878 H Blood Type O NEGATIVE Antibody Screen Negative BBK History Checked Patient has bt
[2017-01-06] MEDS: POLYETHYLENE GLYCOL 3350 17 GM/Dose PACKET PO SCH (14:51)
[2017-01-06] MEDS: Multivitamin Therapeutic Tab PO SCH (14:51)
[2017-01-06 17:54] LABS: FOLATE 6.9 ng/mL
[2017-01-07] MEDS: Lactated Ringer's 1,000 ML IV SCH (04:52)
--- NOTE | 2017-01-07 07:27 | CP.PCM.PN ---
Subjective - Date & Time of Evaluation Date of Evaluation: 01/07/17 Time of Evaluation: 07:23 - Subjective Subjective: Medicine Progress Note Patient seen and examined at bedside. There were no acute overnight events. Patient was scheduled for EUS yesterday, but it was not done. Anesthesia reports that patient needs to be medically stabilized for procedure. He was started on heart healthy diet and tolerated it well. He denies having any CP, SOB, n/v/d, numbness/tingling Objective - Vital Signs/Intake and Output Vital Signs (last 24 hours): Temp Pulse Resp BP Pulse Ox 99.2 F 99 H 20 129/90 93 L 01/06/17 16:05 01/06/17 18:43 01/06/17 16:05 01/06/17 20:37 01/06/17 16:05 Intake and Output: 01/07/17 01/07/17 06:59 18:59 Intake Total 2880 Output Total 900 Balance 1980 - Medications Medications: Current Medications Atorvastatin Calcium (Lipitor) 40 mg PO DIN [facility] Last Admin: 01/06/17 18:43 Dose: 40 mg Cholecalciferol (Vitamin D) 2,000 iu PO DAILY [facility] Last Admin: 01/06/17 14:52 Dose: 2,000 iu Citalopram Hydrobromide (Celexa) 20 mg PO DAILY [facility] Last Admin: 01/06/17 14:50 Dose: 20 mg Clonidine HCl (Catapres) 0.1 mg PO Q6H PRN PRN Reason: Systolic Blood Pressure Last Admin: 01/05/17 16:59 Dose: 0.1 mg Diphenhydramine HCl (Benadryl) 25 mg PO BID PRN PRN Reason: Itching / Pruritus Folic Acid (Folic Acid) 1 mg PO DAILY [facility] Last Admin: 01/06/17 14:51 Dose: 1 mg Hydromorphone HCl (Dilaudid) 0.5 mg IVP Q4H PRN PRN Reason: Pain, moderate (4-7) Last Admin: 01/04/17 09:46 Dose: 0.5 mg Metoprolol Tartrate (Lopressor) 25 mg PO TID [facility] Last Admin: 01/06/17 18:43 Dose: 25 mg Multivitamins (Thera Tab) 1 tab PO 0800 [facility] Last Admin: 08/03/17 14:51 Dose: 1 tab Nicotine (Nicoderm Cq) 1 patch TD DAILY [facility] Last Admin: 01/06/17 09:07 Dose: Not Given Ondansetron HCl (Zofran Inj) 4 mg IVP Q4H PRN PRN Reason: Nausea/Vomiting Pantoprazole Sodium (Protonix Inj) 40 mg IVP Q12 [facility] Last Admin: 01/06/17 22:00 Dose: 40 mg Polyethylene Glycol (Miralax) 17 gm PO DAILY [facility] Last Admin: 01/06/17 14:51 Dose: 17 gm Tamsulosin HCl (Flomax) 0.4 mg PO DAILY [facility] Last Admin: 01/06/17 14:51 Dose: 0.4 mg Thiamine HCl (Vitamin B1 Inj) 100 mg IV DAILY [facility] Last Admin: 01/06/17 09:08 Dose: 100 mg - Labs Labs: 01/06/17 06:50 01/06/17 06:50 PT 11.6 Seconds (9.9-11.8) 01/03/17 06:00 INR 1.07 (0.93-1.08) 01/03/17 06:00 APTT 25.1 Seconds (23.7-30.8) 01/03/17 06:00 - Constitutional Appears: No Acute Distress - Head Exam Head Exam: ATRAUMATIC, NORMAL INSPECTION, NORMOCEPHALIC - Eye Exam Eye Exam: Normal appearance, PERRL Pupil Exam: NORMAL ACCOMODATION, PERRL - ENT Exam ENT Exam: Mucous Membranes Moist - Neck Exam Neck Exam: Full ROM - Respiratory Exam Respiratory Exam: Clear to Ausculation Bilateral, NORMAL BREATHING PATTERN. absent: Rales, Rhonchi, Wheezes - Cardiovascular Exam Cardiovascular Exam: REGULAR RHYTHM, +S1, +S2. absent: Gallop, Rubs, Murmur - GI/Abdominal Exam GI & Abdominal Exam: Distended, Tenderness (RUQ), Normal Bowel Sounds. absent: Rigid, Rebound - Extremities Exam Extremities Exam: Normal Inspection. absent: Calf Tenderness, Pedal Edema - Neurological Exam Neurological Exam: Alert, Awake, CN II-XII Intact, Oriented x3 - Psychiatric Exam Psychiatric exam: Normal Affect, Normal Mood - Skin Skin Exam: Dry, Intact, Warm Assessment and Plan - Assessment and Plan (Free Text) Assessment: This is a 56Y AA M with PMH HTN, chronic pancreatitis secondary to alcohol use admitted for acute on chronic pancreatitis Plan: 1. Acute on chronic pancreatitis - Hx of pancreatic psuedocyst - GI consulted-recs appreciated- recommended outpatient EUS and colonoscopy (pt has family history of colon cancer) - Surgery consulted- recs appreciated - Continue prn Zofran, Miralax and Dilaudid - Amylase and lipase trending down 2. SOB - Will check PFT, D-dimer, ABG, CXR - BNP negative - Troponin negative x 3 - Echo showed EF 61%, normal LV function - Xopenex 3. Anemia- stable - anemia of chronic disease - Iron: low TIBC: low %Sat: low Ferritin: high - Continue Folic acid - Will give IV Iron as well 4. Dyslipidemia - Continue Lipitor 5. Hx of HTN - Lopressor TID - Clonidine 0.1 q6h prn SBP >170 and diastolic BP >100 6. Tobacco abuse - Smoking cessation - Continue nicotine patch - Xopenex prn 7. Hx of alcohol abuse - Continue Thiamine, Multivitamin, Folic acid - Alcohol cessation 8. Vit D deficiency - continue Vit D 9. Hx of Depression - Continue Celexa GI PPX: Protonix DVT ppx: SCDs Dispo: Discharge plan depending on PT and TCU eval. Case seen, discussed and reviewed with Dr. Sushant Hickey PGY2
[2017-01-07 07:40] LABS: BASO # 0.02 K/mm3 (0.0-2.0); BASO % 0.3 % (0.0-3.0); EOS # 0.2 (0.0-0.7); EOS % 2.8 % (1.5-5.0); GRAN # 5.09 (1.4-6.5); GRAN % 70.3 % (50.0-68.0); HEMOGLOBIN 10.4 gm/dL (14.0-18.0); LYMPH # 1.2 (1.2-3.4); LYMPH % 15.9 % (22.0-35.0); MEAN CELL VOLUME 78.4 fL (80.0-105.0); MEAN CORPUSCULAR HEMOGLOBIN 26.7 pg (25.0-35.0); MEAN CORPUSCULAR HGB CONC 34.1 g/dl (31.0-37.0); MONO # 0.8 (0.1-0.6); MONO % 10.7 % (1.0-6.0); PLATELET COUNT 166 10^3/uL (120.0-450.0); RBC 3.89 10^6/uL (3.5-6.1); RED CELL DISTRIBUTION WIDTH 13.3 % (11.5-14.5); WHITE BLOOD COUNT 7.2 10^3/ul (4.5-11.0)
[2017-01-07 08:09] LABS: ALB/GLOB RATIO 1.2 (1.1-1.8); ALBUMIN 3.3 g/dL (3.0-4.8); ALT/SGPT 17 U/L (7-56); AMYLASE 295 U/L (35-125); AST/SGOT 15 U/L (15-59); BILIRUBIN,DIRECT 0.5 mg/dL (0.0-0.4); BLOOD UREA NITROGEN 10 mg/dL (7-21); CALCIUM 8.6 mg/dL (8.4-10.5); GFR AFRICAN-AMERICAN > 60; GFR NON-AFRICAN AMERICAN > 60; LIPASE 812 U/L (23-300)
[2017-01-07] MEDS ORDERED: Potassium Chloride 20 mEq ER Tab PO STA (08:13)
[2017-01-07] MEDS: Multivitamin Therapeutic Tab PO SCH (09:00)
--- NOTE | 2017-01-07 09:51 | RAD ---
HISTORY: COMPARISON: 01/05/2017. TECHNIQUE: Chest PA and lateral FINDINGS: LINES AND TUBES: None. LUNG AND PLEURA: There is bibasilar airspace disease. There is improving left pleural effusion. There is a probable small right pleural effusion. HEART AND MEDIASTINUM: The heart is not enlarged. The hilar and mediastinal contours are within normal limits. SKELETAL STRUCTURES: Within normal limits for the patient's age. VISUALIZED UPPER ABDOMEN: Normal. OTHER FINDINGS: None. IMPRESSION: 1. Improving left pleural effusion. 2. Suspect small right pleural effusion. 3. Suspect bibasilar atelectasis/pneumonia. Follow-up is advised.
[2017-01-07] MEDS: Thiamine 100 mg/ml Inj IV SCH (10:19)
[2017-01-07] MEDS: POLYETHYLENE GLYCOL 3350 17 GM/Dose PACKET PO SCH (10:19)
--- NOTE | 2017-01-07 10:30 | PN ---
DATE: 01/07/2017 SUBJECTIVE: The patient is seen in 573, bed 3. The patient is seen lying in the bed. The patient does report some improvement of the abdominal pain. Overnight nurses' notes were reviewed. The patient was started on diet, which he tolerated. In the morning, IV fluid was stopped. According to the nurses' notes, the patient had some wheezing noted. . PHYSICAL EXAMINATION: VITAL SIGNS: T-max is 99.2. Heart rate 99, 99. Blood pressure 129/90, 138/99, 149/95. Respirations 20. O2 saturation is 93% to 94% to 95%. HEENT: Head examination is normocephalic and atraumatic. Positive vitiligo noted. HEENT examination shows pinkish pale conjunctivae, dry oral mucosa. No neck rigidity. CHEST: Kyphosis. LUNGS: On my auscultation, the patient does not have any wheezing. At present, air entry is appropriate. CARDIOVASCULAR: S1 and S2, regular rhythm. ABDOMEN: Less distended. Positive and hyperactive bowel sounds. GENITALIA: Male. RECTAL: Deferred. EXTREMITIES: Show no pitting edema. No calf tenderness. No clubbing. No cyanosis. SKIN: Shows positive vitiligo of the skin. MUSCULOSKELETAL: Shows a body mass index of 26. Gait examination is not tested. The patient is encouraged to ambulate and be out of bed. NEUROLOGIC: There is no gross deficit noted. DIAGNOSTIC DATA: From 01/07/2017, WBC 7.2, hemoglobin and hematocrit 10.4 and 30.5, platelet 166, granulocytes 70. Sodium 137, potassium 3.5, chloride 101, CO2 of 26, anion gap 14, BUN 10, creatinine 0.8, GFR greater than 60, glucose 114, calcium 8.6, magnesium 2.0, iron 15, TIBC 220, saturation is 7, ferritin is 153, total bili 1.6, direct bili 0.5, LFTs are normal. Amylase has come down to 295 from 697; lipase is 812 from 7763. Vitamin B12 is 478. Echo shows left ventricular ejection fraction of 60% but no valvular abnormalities. Right ventricular systolic pressure is 31. IMPRESSION AND PLAN: 1. Questionable wheezing as per nurses' notes, etiology undetermined. 2. History of nicotine addiction and dependence. 3. Hypertension. 4. Tachycardia. 5. Iron-deficiency anemia. 6. Granulocytosis. 7. Mild hypoxemia. 8. Hypokalemia. 9. Hyperbilirubinemia. 10. Acute recurrent and acute on chronic recurrent pancreatitis. 11. History of dyslipidemia. 12. Depression. 13. History of alcohol dependence. 14. Hypovitaminosis D. 15. Hyperkalemia. PLAN: At this time, repeat labs have been ordered. D-dimer stat and ABG has been ordered. Repeat chest x-ray PA lateral ordered. TCU evaluation ordered. CURRENT MEDICATIONS: Benadryl 25 twice a day p.r.n., clonidine 0.1 mg q. 6 hours p.r.n, Celexa 20 mg daily. Dilaudid 0.5 mg IV q. 4 hours. p.r.n. Flomax 0.4 mg daily, folic acid 1 mg daily. Venofer 200 mg times 3 doses ordered. The patient has been supplemented with potassium 40 mEq. The patient received Lasix 20 mg yesterday. Lipitor 40 mg daily. Lopressor 25 mg three times a day. Miralax 17 g daily. Nicotine patch 21 mg daily. Protonix 40 mg IV q. 12 hours. Multivitamin 1 tablet daily. Thiamine 100 mg IV daily. Vitamin D3 2000 units daily. Xopenex nebulizer 0.63 mg q. 6 hours. Zofran 4 mg IV q. 4 hours. Chest x-ray PA lateral ordered. PFT is ordered. Heart healthy diet is ordered. Starting yesterday, the patient has had been ordered out of bed, SCDs. The patient is to be physical therapist to ordered. At present, the patient's further recommendation will be based on the diagnostic test ordered today. The patient will be monitored for the next 24 to 48 hours. If the patient stays stable, the patient will be considered for discharge home with outpatient GI followup for elective outpatient endoscopic ultrasound, which the patient has been informed. The patient has been updated about his condition, new management plan. Dictated and electronically signed, not read. Signing off, Nilesh Canchola MD. Nilesh Canchola MD
[2017-01-07] MEDS ORDERED: Levalbuterol 0.63 MG/3 ML Inhal Soln UD IH PRN (10:42)
--- NOTE | 2017-01-07 12:33 | CP.PCM.PN ---
Subjective - Date & Time of Evaluation Date of Evaluation: 01/07/17 Time of Evaluation: 12:27 - Subjective Subjective: Patient seen and examined, ambulating in hallway appears quite comfortable. He denies abdominal pain, nausea, vomiting, fever/chills. Tolerating PO diet without difficulty. Review of vitals from today shows hypoxia on room air. 12 point review of systems performed, negative aside from mentioned above. Objective - Vital Signs/Intake and Output Vital Signs (last 24 hours): Temp Pulse Resp BP Pulse Ox 98.6 F 98 H 20 110/81 94 L 01/07/17 08:00 01/07/17 10:21 01/07/17 08:00 01/07/17 10:21 01/07/17 08:00 Intake and Output: 01/07/17 01/07/17 06:59 18:59 Intake Total 2880 Output Total 900 Balance 1979 - Medications Medications: Current Medications Arformoterol Tartrate (Brovana) 15 mcg IH [id number] [facility] Atorvastatin Calcium (Lipitor) 40 mg PO DIN [facility] Last Admin: 01/06/17 18:43 Dose: 40 mg Budesonide (Pulmicort Respules) 0.5 mg IH [id number] [facility] Cholecalciferol (Vitamin D) 2,000 iu PO DAILY [facility] Last Admin: 01/07/17 10:22 Dose: 2,000 iu Citalopram Hydrobromide (Celexa) 20 mg PO DAILY [facility] Last Admin: 01/07/17 10:22 Dose: 20 mg Clonidine HCl (Catapres) 0.1 mg PO Q6H PRN PRN Reason: Systolic Blood Pressure Last Admin: 01/05/17 16:59 Dose: 0.1 mg Diphenhydramine HCl (Benadryl) 25 mg PO BID PRN PRN Reason: Itching / Pruritus Folic Acid (Folic Acid) 1 mg PO DAILY [facility] Last Admin: 01/07/17 10:22 Dose: 1 mg Hydromorphone HCl (Dilaudid) 0.5 mg IVP Q4H PRN PRN Reason: Pain, moderate (4-7) Last Admin: 01/04/17 09:46 Dose: 0.5 mg Iron Sucrose 200 mg/ Sodium (Chloride) 110 mls @ 110 mls/hr IVPB DAILY [facility] Stop: 01/10/17 10:01 Last Admin: 01/07/17 10:20 Dose: 110 mls/hr Levalbuterol HCl (Xopenex) 0.63 mg IH [id number] [facility] Levalbuterol HCl (Xopenex) 0.63 mg IH [id number] PRN PRN Reason: Shortness of Breath Metoprolol Tartrate (Lopressor) 25 mg PO TID [facility] Last Admin: 01/07/17 10:21 Dose: 25 mg Multivitamins (Thera Tab) 1 tab PO 0800 [facility] Last Admin: 01/07/17 09:00 Dose: 1 tab Nicotine (Nicoderm Cq) 1 patch TD DAILY [facility] Last Admin: 01/07/17 10:22 Dose: Not Given Ondansetron HCl (Zofran Inj) 4 mg IVP Q4H PRN PRN Reason: Nausea/Vomiting Pantoprazole Sodium (Protonix Inj) 40 mg IVP Q12 [facility] Last Admin: 01/07/17 10:20 Dose: 40 mg Polyethylene Glycol (Miralax) 17 gm PO DAILY [facility] Last Admin: 01/07/17 10:19 Dose: 17 gm Tamsulosin HCl (Flomax) 0.4 mg PO DAILY [facility] Last Admin: 01/07/17 10:20 Dose: 0.4 mg Thiamine HCl (Vitamin B1 Inj) 100 mg IV DAILY [facility] Last Admin: 01/07/17 10:19 Dose: 100 mg - Labs Labs: 01/07/17 07:00 01/07/17 07:00 PT 11.6 Seconds (9.9-11.8) 01/03/17 06:00 INR 1.07 (0.93-1.08) 01/03/17 06:00 APTT 25.1 Seconds (23.7-30.8) 01/03/17 06:00 - Constitutional Appears: Non-toxic, No Acute Distress - Head Exam Head Exam: NORMAL INSPECTION - Eye Exam Eye Exam: EOMI, Normal appearance - ENT Exam ENT Exam: Mucous Membranes Moist - Respiratory Exam Respiratory Exam: Wheezes Additional comments: bilateral lung watters - Cardiovascular Exam Cardiovascular Exam: REGULAR RHYTHM, +S1, +S2 - GI/Abdominal Exam GI & Abdominal Exam: Soft, Normal Bowel Sounds Additional comments: non tender to palpation in four quadrants - Extremities Exam Extremities Exam: Normal Inspection - Skin Additional comments: +vitilligo Assessment and Plan - Assessment and Plan (Free Text) Assessment: Acute on chronic pancreatitis (secondary to ETOH), abdominal pain now resolved Pancreatic pseudocyst Plan: - Low fat diet as tolerated - Continue with respiratory management as per medical team - Continue with PPI therapy - ETOH cessation counseling - EUS attempted while patient hospitalized, however cancelled by anesthesia due to respiratory concerns. Therefore, will plan for outpatient evaluation with Dr. Ibrahim following resolution of acute pulmonary issues. No further GI issues , will sign off case. Please reconsult as necessary, thank you.
[2017-01-07 13:24] LABS: ARTERIAL BLOOD GAS HCO3 24.2 mmol/L (21-28); ARTERIAL BLOOD GAS PCO2 34 mm/Hg (35-45); ARTERIAL BLOOD GAS PH 7.46 (7.35-7.45)
[2017-01-07 13:25] LABS: ARTERIAL BLOOD GAS O2 SAT 94.5 % (95-98); ARTERIAL BLOOD GAS TCO2 25.2 mmol.L (22-28)
[2017-01-07] MEDS: Levalbuterol 0.63 MG/3 ML Inhal Soln UD IH SCH ×3 (13:39→20:00)
[2017-01-07] MEDS ORDERED: Iodixanol 320 MG/ML 100 ML BOTTLE IV ONE (13:59)
--- NOTE | 2017-01-07 14:52 | CT ---
PROCEDURE: CT Chest with contrast (Pulmonary Angiogram) HISTORY: Elevated D-Dimer COMPARISON: None available. TECHNIQUE: Axial computed tomography images were obtained of the chest in the pulmonary arterial phase of enhancement. Coronal and sagittal reformatted images were created and reviewed. Intravenous contrast dose: 100 cc of Visipaque Radiation dose: Total exam DLP = 373 mGy-cm. This CT exam was performed using one or more of the following dose reduction techniques: Automated exposure control, adjustment of the mA and/or kV according to patient size, and/or use of iterative reconstruction technique. FINDINGS: PULMONARY ARTERIES: Unremarkable. No pulmonary embolism. AORTA: No acute findings. No thoracic aortic aneurysm. LUNGS: Bibasilar consolidation and small pleural effusions are seen. PLEURAL SPACES: Unremarkable. No effusion or pneuomothorax. HEART: Unremarkable. No cardiomegaly. No significant pericardial effusion. LYMPH NODES: No lymphadenopathy. BONES, CHEST WALL: Unremarkable. No fracture or destructive lesion OTHER FINDINGS: Unremarkable. IMPRESSION: Bibasilar consolidation and small pleural effusions. No evidence of pulmonary embolus
[2017-01-07] MEDS: HYDROmorphone 0.5 mg/0.5 ml ISec IVP PRN ×2 (16:24→23:26)
[2017-01-07] MEDS: Arformoterol 15 mcg/2 ml Inh Sol IH SCH (20:00)
[2017-01-07] MEDS: Budesonide 0.5 mg/2 ml Inhal Susp UD IH SCH (20:00)
[2017-01-08] MEDS: Levalbuterol 0.63 MG/3 ML Inhal Soln UD IH SCH ×4 (03:00→21:05)
[2017-01-08] MEDS: Budesonide 0.5 mg/2 ml Inhal Susp UD IH SCH ×2 (07:47→21:05)
[2017-01-08] MEDS: Arformoterol 15 mcg/2 ml Inh Sol IH SCH ×2 (07:47→21:05)
[2017-01-08 07:49] LABS: BASO # 0.02 K/mm3 (0.0-2.0); BASO % 0.3 % (0.0-3.0); EOS # 0.3 (0.0-0.7); EOS % 4.8 % (1.5-5.0); GRAN # 4.03 (1.4-6.5); GRAN % 64.6 % (50.0-68.0); HEMOGLOBIN 10.1 gm/dL (14.0-18.0); LYMPH # 1.3 (1.2-3.4); MEAN CELL VOLUME 79.1 fL (80.0-105.0); MEAN CORPUSCULAR HEMOGLOBIN 26.4 pg (25.0-35.0); MEAN CORPUSCULAR HGB CONC 33.4 g/dl (31.0-37.0); MONO # 0.6 (0.1-0.6); MONO % 10.3 % (1.0-6.0); PLATELET COUNT 185 10^3/uL (120.0-450.0); RBC 3.82 10^6/uL (3.5-6.1); RED CELL DISTRIBUTION WIDTH 13.4 % (11.5-14.5); WHITE BLOOD COUNT 6.2 10^3/ul (4.5-11.0)
[2017-01-08 08:04] LABS: ALBUMIN 3.1 g/dL (3.0-4.8); ALT/SGPT 15 U/L (7-56); AMYLASE 406 U/L (35-125); AST/SGOT 15 U/L (15-59); BILIRUBIN,DIRECT 0.3 mg/dL (0.0-0.4); BLOOD UREA NITROGEN 7 mg/dL (7-21); CALCIUM 8.6 mg/dL (8.4-10.5); GFR AFRICAN-AMERICAN > 60; GFR NON-AFRICAN AMERICAN > 60; MAGNESIUM 2.1 mg/dL (1.7-2.2)
[2017-01-08 08:06] LABS: LIPASE 1368 U/L (23-300)
[2017-01-08] MEDS: Multivitamin Therapeutic Tab PO SCH (09:00)
[2017-01-08] MEDS: Thiamine 100 mg/ml Inj IV SCH (10:15)
[2017-01-08] MEDS: POLYETHYLENE GLYCOL 3350 17 GM/Dose PACKET PO SCH (10:20)
--- NOTE | 2017-01-08 13:50 | US ---
HISTORY: Leg pain and swelling. Evaluate for DVT PHYSICIAN(S): Grady Wallace MD. TECHNIQUE: Duplex sonography and color-flow Doppler with graded compression were used to evaluate the deep venous systems of both lower extremities. The exam is limited by edema FINDINGS: The visualized deep venous systems of both lower extremities are sonographically normal and compressible. Normal wave forms and augmentation are seen. There is no sonographic evidence for deep venous thrombosis in the visualized segments of both lower extremities. IMPRESSION: No sonographic evidence for deep venous thrombosis in the visualized segments of both lower extremities.
[2017-01-08] MEDS ORDERED: Potassium Chloride 20 mEq ER Tab PO ONE (17:59)
--- NOTE | 2017-01-08 22:08 | PN ---
DATE: 01/08/2017 SUBJECTIVE: The patient is seen again and lying in the bed. The patient states that the abdominal pain is less. The patient is requiring Dilaudid p.r.n. for abdominal pain as per the nurses note. The patient was started on chest PT. Overnight nurses notes were reviewed. PHYSICAL EXAMINATION VITAL SIGNS: T-Max 98.4, heart rate 87 to 94 to 98, blood pressure 119/86, 121/80, respirations 16, and O2 sat 94% to 93%. HEENT: Head; normocephalic and atraumatic. HEENT exam shows; pinkish pale conjunctivae, anicteric sclerae, dry oral mucosa, positive vitiligo of the skin noted. CHEST: Kyphosis. LUNGS: Occasional rhonchi at the bases. CARDIOVASCULAR: S1 and S2. Regular rhythm. ABDOMEN: Less distended, but positive epigastric periumbilical tenderness. No rebound tenderness. No costovertebral angle tenderness. GENITALIA: Male. RECTAL: Deferred. EXTREMITIES: No pitting edema. No calf tenderness. No Homans sign. NEUROLOGIC: The patient is alert, awake and oriented x3. He is able to move upper and lower extremities without assistance. Gait examination is not deferred. MUSCULOSKELETAL: Shows a body mass index of 25.8. DIAGNOSTIC DATA: On 01/08/2017, WBC 6.2, hemoglobin and hematocrit 10.1 and 30.2 and platelets 185. D-dimer was elevated at 4.92 yesterday. The patient had an ABG done yesterday which shows pH of 7.46, PCO2 of 34, PO2 of 58, bicarb 24 and saturation of 94.5% on room air. Sodium 138, potassium 3.7, chloride 101, CO2 of 28, anion gap 13, BUN 7, creatinine 0.8, GFR greater than 60, glucose 91, calcium 8.6 and magnesium 2.1. LFTs are now normal with total bili 1.1, direct bili 0.3, LFTs are normal. BNP is 89. The patient's amylase went up from 406 from 295, lipase went up to 1368 from 812. The patient had a CT of the chest done, CT angio done because of the elevated D-dimer and hypoxemia and tachycardia which shows bibasilar consolidation and pleural effusion. No pulmonary embolism. The patient had venous Doppler of the lower extremity was negative. The patient was seen by GI recommending outpatient EUS. IMPRESSION: 1. Acute recurrent and acute on chronic pancreatitis with elevated amylase and lipase and pancreatic pseudocyst. 2. Hypoxemia. 3. Tachycardia. 4. Moderate emphysema and chronic obstructive pulmonary disease. 5. Deconditioning. 6. Abdominal pain secondary to pancreatitis. 7. Normocytic anemia with decreasing hemoglobin and hematocrit. 8. Granulocytosis. 9. Elevated D-dimer of 4.9. 10. Hypokalemia. 11. Hyperbilirubinemia. 12. Iron-deficiency anemia. 13. Borderline hypokalemia. 14. Persistently elevated amylase and lipase. 15. History of nicotine dependent emphysema. 16. Trace proteinuria. 17. History of hypertension and depression. 18. Bibasilar consolidation and pleural effusion. 19. Questionable healthcare associated bibasilar consolidation versus pneumonia and pleural effusion. 20. Gait dysfunction. 21. History of vitiligo. 22. Prostate hypertrophy. 23. Dyslipidemia. 24. Constipation. 25. Active nicotine addiction. 26. Hypovitaminoses D. 27. Bilateral pleural effusion. PLAN: At this time, the patient has had been ordered serial labs. The patient was given the dose of Lasix 40 IV x1. The patient has been given order of potassium 40 mEq p.o. x1 because of borderline hypokalemia. The patient is on Benadryl 25 mg twice a day p.r.n. Brovana 15 mcg nebulizer q.12 hours, clonidine 0.1 mg q.6 p.r.n., Celexa 20 mg daily, Dilaudid 0.5 mg IV q.4 p.r.n., doxycycline 100 mg p.o. q.12, Flomax 0.4 mg daily, folic acid 1 mg daily, Venofer 200 mg daily x3 doses. The patient is on Lasix 40 IV x1 dose, Lipitor 40 mg daily, Lopressor 25 mg 3 times a day, MiraLax 17 g daily, nicotine patch 21 mg daily, Protonix 40 mg IV q.12, Pulmicort nebulizer 0.5 mg q.12, Rocephin 1 g IV daily, multivitamin 1 tablet IV daily, thiamine 100 mg IV daily, vitamin D3 2000 units daily, Xopenex 0.63 mg every 6 hours. The patient is also on Zofran 4 IV q. 4, chest PT, incentive spirometry. The patient has been ordered oxygen 2 liters continuous humidified. The patient has been ordered incentive spirometry, chest PT, out of bed, HELEN stockings, occupational therapy, physical therapy, stool occult blood. The patient updated about his condition, diagnoses, treatment plan, management plan at length and all questions and concerns answered, which he acknowledged and understood. Dictated and electronically signed, not read. Nilesh Canchola MD
[2017-01-09] MEDS: Levalbuterol 0.63 MG/3 ML Inhal Soln UD IH SCH ×4 (02:50→21:29)
[2017-01-09 07:57] LABS: BASO # 0.03 K/mm3 (0.0-2.0); BASO % 0.5 % (0.0-3.0); EOS # 0.4 (0.0-0.7); EOS % 7.3 % (1.5-5.0); GRAN # 3.38 (1.4-6.5); GRAN % 56.3 % (50.0-68.0); LYMPH # 1.5 (1.2-3.4); LYMPH % 24.7 % (22.0-35.0); MEAN CELL VOLUME 79.3 fL (80.0-105.0); MEAN CORPUSCULAR HEMOGLOBIN 26.5 pg (25.0-35.0); MEAN CORPUSCULAR HGB CONC 33.4 g/dl (31.0-37.0); MEAN PLATELET VOLUME 10.7 fl (7.0-11.0); MONO # 0.7 (0.1-0.6); MONO % 11.2 % (1.0-6.0); PLATELET COUNT 203 10^3/uL (120.0-450.0); RBC 3.77 10^6/uL (3.5-6.1); RED CELL DISTRIBUTION WIDTH 13.5 % (11.5-14.5)
[2017-01-09 08:07] LABS: ALB/GLOB RATIO 1.1 (1.1-1.8); ALBUMIN 3.3 g/dL (3.0-4.8); ALT/SGPT 19 U/L (7-56); AMYLASE 355 U/L (35-125); AST/SGOT 16 U/L (15-59); BILIRUBIN,DIRECT 0.3 mg/dL (0.0-0.4); BLOOD UREA NITROGEN 6 mg/dL (7-21); CALCIUM 8.9 mg/dL (8.4-10.5); GFR AFRICAN-AMERICAN > 60; GFR NON-AFRICAN AMERICAN > 60; LIPASE 1318 U/L (23-300)
[2017-01-09] MEDS: Budesonide 0.5 mg/2 ml Inhal Susp UD IH SCH ×2 (08:36→21:29)
[2017-01-09] MEDS: Arformoterol 15 mcg/2 ml Inh Sol IH SCH ×2 (08:36→21:29)
[2017-01-09 08:52] VITALS: RESP 20
--- NOTE | 2017-01-09 08:55 | CP.PCM.PN ---
Subjective - Date & Time of Evaluation Date of Evaluation: 01/09/17 Time of Evaluation: 08:30 - Subjective Subjective: Patient is admitted for pancreatitis. He is still requiring Dilaudid for abdominal pain. Objective - Vital Signs/Intake and Output Vital Signs (last 24 hours): Temp Pulse Resp BP Pulse Ox 98.4 F 87 16 119/86 94 L 01/08/17 16:49 01/08/17 17:24 01/08/17 16:49 01/08/17 17:24 01/08/17 16:49 Intake and Output: 01/09/17 01/09/17 06:59 18:59 Intake Total 900 Balance 900 - Medications Medications: Current Medications Arformoterol Tartrate (Brovana) 15 mcg IH [id number] [facility] Last Admin: 01/09/17 08:36 Dose: 15 mcg Atorvastatin Calcium (Lipitor) 40 mg PO DIN [facility] Last Admin: 01/08/17 17:24 Dose: 40 mg Budesonide (Pulmicort Respules) 0.5 mg IH [id number] [facility] Last Admin: 01/09/17 08:36 Dose: 0.5 mg Cholecalciferol (Vitamin D) 2,000 iu PO DAILY [facility] Last Admin: 01/08/17 10:15 Dose: 2,000 iu Citalopram Hydrobromide (Celexa) 20 mg PO DAILY [facility] Last Admin: 01/08/17 10:16 Dose: 20 mg Clonidine HCl (Catapres) 0.1 mg PO Q6H PRN PRN Reason: Systolic Blood Pressure Last Admin: 01/05/17 16:59 Dose: 0.1 mg Diphenhydramine HCl (Benadryl) 25 mg PO BID PRN PRN Reason: Itching / Pruritus Doxycycline Hyclate (Doryx) 100 mg PO Q12 [place] PRN Reason: Protocol Last Admin: 01/08/17 21:36 Dose: 100 mg Folic Acid (Folic Acid) 1 mg PO DAILY [facility] Last Admin: 01/08/17 10:16 Dose: 1 mg Hydromorphone HCl (Dilaudid) 0.5 mg IVP Q4H PRN PRN Reason: Pain, moderate (4-7) Last Admin: 01/07/17 23:26 Dose: 0.5 mg Iron Sucrose 200 mg/ Sodium (Chloride) 110 mls @ 110 mls/hr IVPB DAILY [facility] Stop: 01/10/17 10:01 Last Admin: 01/08/17 10:20 Dose: 110 mls/hr Ceftriaxone Sodium (Rocephin 1 Gram Ivpb) 1 gm in 100 mls @ 100 mls/hr IVPB DAILY [facility] PRN Reason: Protocol Levalbuterol HCl (Xopenex) 0.63 mg IH [id number] [facility] Last Admin: 01/09/17 08:36 Dose: Not Given Metoprolol Tartrate (Lopressor) 25 mg PO TID [facility] Last Admin: 01/08/17 17:24 Dose: 25 mg Multivitamins (Thera Tab) 1 tab PO 0800 [facility] Last Admin: 01/08/17 09:00 Dose: 1 tab Nicotine (Nicoderm Cq) 1 patch TD DAILY [facility] Last Admin: 01/08/17 10:21 Dose: Not Given Ondansetron HCl (Zofran Inj) 4 mg IVP Q4H PRN PRN Reason: Nausea/Vomiting Pantoprazole Sodium (Protonix Ec Tab) 40 mg PO 0600,1600 [facility] Polyethylene Glycol (Miralax) 17 gm PO DAILY [facility] Last Admin: 01/08/17 10:20 Dose: 17 gm Tamsulosin HCl (Flomax) 0.4 mg PO DAILY [facility] Last Admin: 01/08/17 10:15 Dose: 0.4 mg Thiamine HCl (Vitamin B1 Inj) 100 mg IV DAILY [facility] Last Admin: 01/08/17 10:15 Dose: 100 mg - Labs Labs: 01/09/17 07:00 01/09/17 07:00 PT 11.6 Seconds (9.9-11.8) 01/03/17 06:00 INR 1.07 (0.93-1.08) 01/03/17 06:00 APTT 25.1 Seconds (23.7-30.8) 01/03/17 06:00 - Head Exam Head Exam: ATRAUMATIC, NORMOCEPHALIC - Respiratory Exam Respiratory Exam: Clear to Ausculation Bilateral, NORMAL BREATHING PATTERN - Cardiovascular Exam Cardiovascular Exam: REGULAR RHYTHM, +S1, +S2 - GI/Abdominal Exam GI & Abdominal Exam: Tenderness, Normal Bowel Sounds Additional comments: + epigastric tenderness - Neurological Exam Neurological Exam: Alert, Awake, Oriented x3 Assessment and Plan - Assessment and Plan (Free Text) Assessment: Acute on chronic pancreatitis with pseudocyst Chronic obstructive pulmonary disease Abdominal pain secondary to pancreatitis Anemia Hypertension Plan: Patient is still receiving dilaudid as needed for abdominal pain. Amylase and Lipase continue to be elevated. Amylase is 355 and Lipase is 1318. continue respiratory treatments for emphysema. The patient has been order physical and occupational therapy.
[2017-01-09] MEDS: Multivitamin Therapeutic Tab PO SCH (09:07)
[2017-01-09] MEDS: POLYETHYLENE GLYCOL 3350 17 GM/Dose PACKET PO SCH (09:08)
[2017-01-09] MEDS: Thiamine 100 mg/ml Inj IV SCH (09:08)
[2017-01-09] MEDS: cefTRIAXone 1 gm 1 GM/100 ML BAG IVPB SCH ×2 (09:09→13:20)
[2017-01-09] MEDS: Pantoprazole 40 mg EC Tab PO SCH (16:01)
[2017-01-09 16:26] VITALS: TEMP 98.2
[2017-01-10] MEDS: Levalbuterol 0.63 MG/3 ML Inhal Soln UD IH SCH ×3 (03:23→14:10)
[2017-01-10] MEDS: Pantoprazole 40 mg EC Tab PO SCH (06:10)
[2017-01-10 07:56] LABS: BASO # 0.02 K/mm3 (0.0-2.0); BASO % 0.4 % (0.0-3.0); EOS # 0.4 (0.0-0.7); EOS % 7.1 % (1.5-5.0); GRAN % 59.4 % (50.0-68.0); HEMOGLOBIN 10.3 gm/dL (14.0-18.0); LYMPH # 1.3 (1.2-3.4); LYMPH % 23.2 % (22.0-35.0); MEAN CELL VOLUME 79.9 fL (80.0-105.0); MEAN CORPUSCULAR HEMOGLOBIN 26.5 pg (25.0-35.0); MEAN CORPUSCULAR HGB CONC 33.2 g/dl (31.0-37.0); MEAN PLATELET VOLUME 10.3 fl (7.0-11.0); MONO # 0.5 (0.1-0.6); MONO % 9.9 % (1.0-6.0); PLATELET COUNT 210 10^3/uL (120.0-450.0); RBC 3.88 10^6/uL (3.5-6.1); RED CELL DISTRIBUTION WIDTH 13.6 % (11.5-14.5); WHITE BLOOD COUNT 5.4 10^3/ul (4.5-11.0)
[2017-01-10 08:14] VITALS: O2SAT 97
[2017-01-10 08:16] LABS: ALB/GLOB RATIO 1.1 (1.1-1.8); ALBUMIN 3.4 g/dL (3.0-4.8); ALT/SGPT 21 U/L (7-56); AST/SGOT 17 U/L (15-59); BILIRUBIN,DIRECT 0.4 mg/dL (0.0-0.4); BLOOD UREA NITROGEN 6 mg/dL (7-21); CALCIUM 8.9 mg/dL (8.4-10.5); GFR AFRICAN-AMERICAN > 60; GFR NON-AFRICAN AMERICAN > 60
[2017-01-10 08:17] LABS: AMYLASE 407 U/L (35-125)
[2017-01-10] MEDS: Budesonide 0.5 mg/2 ml Inhal Susp UD IH SCH (08:17)
[2017-01-10] MEDS: Arformoterol 15 mcg/2 ml Inh Sol IH SCH (08:17)
[2017-01-10 08:18] LABS: LIPASE 1351 U/L (23-300)
[2017-01-10] MEDS: Multivitamin Therapeutic Tab PO SCH (08:28)
[2017-01-10] MEDS: cefTRIAXone 1 gm 1 GM/100 ML BAG IVPB SCH (10:25)
[2017-01-10] MEDS: Thiamine 100 mg/ml Inj IV SCH (10:27)
[2017-01-10] MEDS: POLYETHYLENE GLYCOL 3350 17 GM/Dose PACKET PO SCH ×2 (10:32→10:47)
--- NOTE | 2017-01-10 11:23 | CP.PCM.DIS ---
Provider - Provider Date of Admission: 01/04/17 09:56 Attending physician: Nilesh Canchola MD Primary care physician: Nilesh Canchola MD Consults: Cardio: Dr. Anguiano GI: Dr. Israel Surg: Dr. Dee Time Spent in preparation of Discharge (in minutes): 55 Hospital Course - Lab Results Lab Results: Most Recent Lab Values WBC 5.4 10^3/ul (4.5-11.0) 01/10/17 07:35 RBC 3.88 10^6/uL (3.5-6.1) 01/10/17 07:35 Hgb 10.3 gm/dL (14.0-18.0) L 01/10/17 07:35 Hct 31.0 % (42.0-52.0) L 01/10/17 07:35 MCV 79.9 fL (80.0-105.0) L 01/10/17 07:35 MCH 26.5 pg (25.0-35.0) 01/10/17 07:35 MCHC 33.2 g/dl (31.0-37.0) 01/10/17 07:35 RDW 13.6 % (11.5-14.5) 01/10/17 07:35 Plt Count 210 10^3/uL (120.0-450.0) 01/10/17 07:35 MPV 10.3 fl (7.0-11.0) 01/10/17 07:35 Gran % 59.4 % (50.0-68.0) 01/10/17 07:35 Lymph % (Auto) 23.2 % (22.0-35.0) 01/10/17 07:35 [place] % (Auto) 9.9 % (1.0-6.0) H 01/10/17 07:35 Eos % (Auto) 7.1 % (1.5-5.0) H 01/10/17 07:35 Baso % (Auto) 0.4 % (0.0-3.0) 01/10/17 07:35 Gran # 3.20 (1.4-6.5) 01/10/17 07:35 Lymph # 1.3 (1.2-3.4) 01/10/17 07:35 [place] # 0.5 (0.1-0.6) 01/10/17 07:35 Eos # 0.4 (0.0-0.7) 01/10/17 07:35 Baso # 0.02 K/mm3 (0.0-2.0) 01/10/17 07:35 PT 11.6 Seconds (9.9-11.8) 01/03/17 06:00 INR 1.07 (0.93-1.08) 01/03/17 06:00 APTT 25.1 Seconds (23.7-30.8) 01/03/17 06:00 D-Dimer, Quantitative 4.92 mg/L FEU (0-0.50) H 01/07/17 12:10 pCO2 34 mm/Hg (35-45) L 01/07/17 12:00 pO2 58.0 mm/Hg (80-100) L 01/07/17 12:00 HCO3 24.2 mmol/L (21-28) 01/07/17 12:00 ABG pH 7.46 (7.35-7.45) H 01/07/17 12:00 ABG Total CO2 25.2 mmol.L (22-28) 01/07/17 12:00 ABG O2 Saturation 94.5 % (95-98) L 01/07/17 12:00 ABG Base Excess 0.7 mmol/L (-2.0-3.0) 01/07/17 12:00 ABG Hemoglobin 11.0 g/dL (11.7-17.4) L 01/07/17 12:00 ABG Carboxyhemoglobin 2.9 % (0.5-1.5) H 01/07/17 12:00 POC ABG HHb (Measured) 5.3 % (0-5) H 01/07/17 12:00 ABG Methemoglobin 1.3 % (0.0-3.0) 01/07/17 12:00 Hgb O2 Saturation 90.5 % (95.0-98.0) L 01/07/17 12:00 FiO2 21.0 % 01/07/17 12:00 Sodium 138 mmol/L (132-148) 01/10/17 07:35 Potassium 4.2 mmol/L (3.6-5.0) 01/10/17 07:35 Chloride 101 mmol/L (95-110) 01/10/17 07:35 Carbon Dioxide 27 mmol/L (21-33) 01/10/17 07:35 Anion Gap 14 (10-20) 01/10/17 07:35 BUN 6 mg/dL (7-21) L 01/10/17 07:35 Creatinine 0.8 mg/dL (0.5-1.4) 01/10/17 07:35 Est GFR ( Amer) > 60 01/10/17 07:35 Est GFR (Non-Af Amer) > 60 01/10/17 07:35 Random Glucose 93 mg/dL (70-110) 01/10/17 07:35 Hemoglobin A1c 4.6 % (4.2-6.5) 01/03/17 09:57 Calcium 8.9 mg/dL (8.4-10.5) 01/10/17 07:35 Magnesium 2.0 mg/dL (1.7-2.2) 01/10/17 07:35 Iron 15 ug/dL (45-180) L 01/06/17 08:40 TIBC 220 ug/dL (261-462) L 01/06/17 08:40 % Saturation 7 % (20-55) L 01/06/17 08:40 Erythropoietin 19.0 mIU/mL (2.6-18.5) H 01/06/17 10:54 Ferritin 153.0 ng/mL 01/06/17 08:40 Total Bilirubin 0.8 mg/dL (0.2-1.3) 01/10/17 07:35 Direct Bilirubin 0.4 mg/dL (0.0-0.4) 01/10/17 07:35 AST 17 U/L (15-59) 01/10/17 07:35 ALT 21 U/L (7-56) 01/10/17 07:35 Alkaline Phosphatase 73 U/L (38-133) 01/10/17 07:35 Lactate Dehydrogenase 327 U/L (333-699) L 01/03/17 06:00 Total Creatine Kinase 60 U/L (35-230) 01/03/17 06:00 Troponin I < 0.01 ng/mL 01/05/17 23:45 NT-Pro-B Natriuret Pep 89.8 pg/mL (0-450) 01/07/17 14:00 Total Protein 6.5 g/dL (5.8-8.3) 01/10/17 07:35 Albumin 3.4 g/dL (3.0-4.8) 01/10/17 07:35 Globulin 3.1 gm/dL 01/10/17 07:35 Albumin/Globulin Ratio 1.1 (1.1-1.8) 01/10/17 07:35 Triglycerides 112 mg/dL (35-160) 01/03/17 09:57 Cholesterol 172 mg/dL (130-200) 01/03/17 09:57 LDL Cholesterol Direct 109 mg/dL (0-129) 01/03/17 09:57 HDL Cholesterol 40 mg/dL (29-60) 01/03/17 09:57 Amylase 407 U/L (35-125) H 01/10/17 07:35 Lipase 1351 U/L (23-300) H 01/10/17 07:35 Prostate Specific Ag 1.8 ng/mL (0.00-2.5) 01/03/17 09:57 Vitamin B12 478 pg/mL (239-931) 01/06/17 08:40 25-OH Vitamin D Total < 12.8 NG/ML (30.0-100.0) L 01/03/17 10:00 Folate 6.9 ng/mL 01/06/17 08:40 Free T4 1.30 ng/dL (0.78-2.19) 01/03/17 09:57 Thyroxine (T4) 9.6 ug/dL (5.5-11.0) 01/03/17 09:57 TSH 3rd Generation 2.08 mIU/mL (0.46-4.68) 01/03/17 09:57 Urine Color Yellow (YELLOW) 01/03/17 23:00 Urine Appearance Clear (CLEAR) 01/03/17 23:00 Urine pH 6.0 (4.7-8.0) 01/03/17 23:00 Ur Specific [place] 1.015 (1.005-1.035) 01/03/17 23:00 Urine Protein Trace mg/dL (<30 mg/dL) H 01/03/17 23:00 Urine Glucose (UA) Negative mg/dL (NEGATIVE) 01/03/17 23:00 Urine Ketones Negative mg/dL (NEGATIVE) 01/03/17 23:00 Urine Blood Negative (NEGATIVE) 01/03/17 23:00 Urine Nitrate Negative (NEGATIVE) 01/03/17 23:00 Urine Bilirubin Negative (NEGATIVE) 01/03/17 23:00 Urine Urobilinogen 0.2 E.U./dL (<1 E.U./dL) 01/03/17 23:00 Ur Leukocyte Esterase Negative Frankie/uL (NEGATIVE) 01/03/17 23:00 Urine RBC 0 - 2 /hpf (0-2) 01/03/17 23:00 Urine WBC 0 - 2 /hpf (0-6) 01/03/17 23:00 Ur Epithelial Cells 0 - 2 /hpf (0-5) 01/03/17 23:00 Urine Opiates Screen Positive (NEGATIVE) H 01/03/17 23:00 Urine Methadone Screen Negative (NEGATIVE) 01/03/17 23:00 Ur Barbiturates Screen Negative (NEGATIVE) 01/03/17 23:00 Ur Phencyclidine Scrn Negative (NEGATIVE) 01/03/17 23:00 Ur Amphetamines Screen Negative (NEGATIVE) 01/03/17 23:00 U Benzodiazepines Scrn Negative (NEGATIVE) 01/03/17 23:00 U Oth Cocaine Metabols Negative (NEGATIVE) 01/03/17 23:00 U Cannabinoids Screen Negative (NEGATIVE) 01/03/17 23:00 Hepatitis A IgM Ab Negative (NEGATIVE) 01/03/17 09:57 Hep Bs Antigen Negative (NEGATIVE) 01/03/17 09:57 Hep B Core IgM Ab Negative (NEGATIVE) 01/03/17 09:57 Hepatitis C Antibody Negative (NEGATIVE) 01/03/17 09:57 HIV 1&2 Ag/Ab, 4th Gen Nonreactive (Nonreactive) 01/03/17 09:57 Blood Type O NEGATIVE 01/06/17 10:30 Antibody Screen Negative 01/06/17 10:30 BBK History Checked Patient has bt 01/06/17 10:30 - Hospital Course Hospital Course: This is a 56Y AA M with PMH HTN, COPD, chronic pancreatitis secondary to alcohol abuse admitted for acute on chronic pancreatitis. GI was consulted and reports patient has pancreatic pseudocyst in past. He was supposed to follow up as outpatient for EUS and colonoscopy, but did not. CT abd/pelvis was done which showed formation of new cysts. Patient was going to go for EUS during admission but was found to be unstable as per anesthesia. Patient was adequately hydrated and is now tolerating diet. As per GI, patient is recommended to have outpatient EUS and colonoscopy in 1 month. He must abstain from alcohol use. Mr. Cedeno was also noted to be short of breath at times. He is a heavy smoker. PFT was done which showed moderate COPD that responds to bronchodilators. Cardiology was consulted. Echo was done which showed EF of 61% with normal LV function. He was noted to be tachycardic and Lopressor was increased to TID. As per cardiology, no further cardiac work up was indicated. D -dimer was noted to be elevated. Lower extremity venous dopplers showed no evidence of DVT. CTA was negative for PE, but showed bilateral atelectasis v. pneumonia. He was started on antibiotics. Of note patient was noted to have anemia of chronic disease as well as vitamin D deficiency. As of today, Mr. Cedeno says he feels better. He denies CP, SOB, cough, n/v/d, numbness/tingling, fever, chills, dysuria or hematuria. He is able to ambulate on his own. Physical therapy recommended pt to be d/c home. Patient will follow up with GI as outpatient for EUS and screening colonoscopy. He will follow up with Dr. Canchola next week for further evaluation. Medications are as per ambulation ordered. - Date & Time of H&P Date of H&P: 01/03/17 Time of H&P: 09:00 Discharge Exam - Head Exam Head Exam: ATRAUMATIC, NORMOCEPHALIC - Eye Exam Eye Exam: Normal appearance, PERRL Pupil Exam: NORMAL ACCOMODATION - ENT Exam ENT Exam: Mucous Membranes Moist - Respiratory Exam Respiratory Exam: Clear to PA & Lateral, NORMAL BREATHING PATTERN, UNREMARKABLE. absent: Rhonchi, Wheezes - Cardiovascular Exam Cardiovascular Exam: REGULAR RHYTHM, +S1, +S2. absent: Gallop, Rubs, Systolic Murmur - GI/Abdominal Exam GI & Abdominal Exam: Distended, Normal Bowel Sounds, Soft, Unremarkable. absent : Guarding, Mass, Rigid, Tenderness - Neurological Exam Neurological exam: Alert, CN II-XII Intact, Normal Gait, Oriented x3 - Psychiatric Exam Psychiatric exam: Normal Affect, Normal Mood - Skin Skin Exam: Dry, Intact, Warm Discharge Plan - Discharge Medications Prescriptions: Levalbuterol [Xopenex] 0.63 mg IH [id number] #120 Arformoterol [Brovana] 15 mcg IH [id number] #30 Atorvastatin [Lipitor] 40 mg PO DIN #30 tab Budesonide [Pulmicort Respules] 0.5 mg IH [id number] #60 Cholecalciferol [Vitamin D 1000 IU] 2,000 iu PO DAILY #120 tab Doxycycline Hyclate [Doryx] 100 mg PO Q12 #14 cap Folic Acid 1 mg PO DAILY #30 tab levoFLOXacin [Levaquin] 500 mg PO DAILY #7 tab Metoprolol Tartrate [Lopressor] 25 mg PO TID #90 tab Nicotine 21 mg/24 hr [Nicoderm Cq] 1 patch TD DAILY #30 patch Pantoprazole [Protonix EC Tab] 40 mg PO 0600,1600 #60 ect Polyethylene Glycol 3350 [Miralax] 17 gm PO DAILY #60 packet Tamsulosin [Flomax] 0.4 mg PO DAILY #30 cap - Follow Up Plan Condition: FAIR Disposition: HOME/ ROUTINE Instructions: Acute Abdominal Pain (DC) Additional Instructions: DISCHARGE HOME FOLLOW UP WITHIN 1 WEEK WITH ALL MEDICATIONS DISCHARGE MEDS PER AMBULATORY ORDERS SENT TO PHARMACY ---E SCRIBE NO SMOKING NO DRIVING NO ALCOHOL 1. Follow up with Dr. Ibrahim, mortising machine operator in 1 week. 2. Will need outpatient colonoscopy and endoscopic ultrasound. 3. Alcohol and tobacco cessation. Referrals: Nilesh Canchola MD [Primary Care Provider] - 1 Week (DISCHARGE HOME FOLLOW UP WITHIN 1 WEEK WITH ALL MEDICATIONS DISCHARGE MEDS PER AMBULATORY ORDERS SENT TO PHARMACY ---E SCRIBE NO SMOKING NO DRIVING NO ALCOHOL) Felix Ibrahim MD [Staff Provider] -
[2017-01-10 14:42] VITALS: BP 120/85; PULSE 86
--- NOTE | 2017-01-11 10:48 | DS ---
The patient is seen in room 573, bed #3. The patient is sitting out of bed to chair. The patient does not offer any specific complaints. Overnight nurses notes were reviewed. The patient slept well. The patient did not ask for pain medicine, occasional gas pain was reported. The patient ambulated independently. PHYSICAL EXAMINATION: VITAL SIGNS: T-Max 98.2, pulse 77, blood pressure 108/74, respirations 20 and O2 sat 97%. HEAD: Normocephalic and atraumatic. HEENT: Shows pinkish pale conjunctiva. Anicteric sclerae. No oropharyngeal lesion. NECK: No rigidity. CHEST: Kyphosis. LUNGS: Showed noted crackles or wheezing, occasional rhonchi. CARDIOVASCULAR: S1 and S2. Regular rhythm. ABDOMEN: Much less protuberant, softer. No tenderness noted. No costovertebral angle tenderness. GENITALIA: Male. RECTAL: Deferred. EXTREMITIES: Shows no pitting edema. No calf tenderness. No Homans sign. MUSCULOSKELETAL: Shows a body mass index of 26. NEUROLOGIC: Cranial nerves II through XII limited. Gait examination is independent as per the nurse's notes. LABORATORY DATA: From 01/10/2017; WBC 5.4, hemoglobin and hematocrit 10.3 and 31 and platelets 210. Sodium 138, potassium 4.2, chloride 101, CO2 of 27, anion gap 14, BUN 6, creatinine 0.8, GFR greater than 60. LFTs are normal. Amylase is 407, lipase is 1351, which is stabilized at that number. The patient's all diagnostic data reviewed. The patient is seen by manager business management, cleared for discharge with outpatient followup for EUS. FINAL IMPRESSION, PLAN AND DISCHARGE DIAGNOSES: 1. Acute recurrent and [id number] pancreatitis with elevated amylase and lipase and increasing and recurrent pancreatic pseudocyst. 2. Moderate emphysema with chronic obstructive pulmonary disease with hypoxemia and tachycardia. 3. Abdominal pain secondary to pancreatitis. 4. History of depression. 5. History of hypertension. 6. Tachycardia. 7. Hypoxemia. 8. Normocytic iron-deficiency anemia. 9. Granulocytosis (resolved). 10. Elevated d-dimer, etiology undetermined. 11. Transient hypokalemia. 12. Iron-deficiency normocytic anemia. 13. Hypovitaminosis D. 14. Transient hyperbilirubinemia. 15. Borderline hypokalemia. 16. Trace proteinuria. 17. Bibasilar consolidation and pleural effusion. 18. Increasing and recurrent pancreatic pseudocyst. At this time, the patient is cleared by all speciality for discharge. The patient is discharged on Norvasc 10 mg daily, Brovana nebulizer 15 mcg twice a day, Ecotrin 81 mg daily, Lipitor 40 mg daily, Pulmicort 0.5 mg twice a day, vitamin D3 2000 International Units daily. The patient is to resume Celexa 20 mg daily. The patient is discharged on doxycycline 100 mg q.12 14 tablets. The patient is discharged on Pepcid 20 mg twice a day and folic acid 1 mg daily. The patient is to resume hydrochlorothiazide 25 mg daily. The patient is started on Xopenex nebulizer 0.63 mg q.6 hours, Lopressor increased to 25 mg 3 times a day, nicotine patch 21 mg daily, Protonix 40 mg twice a day, MiraLax 17 g daily, Flomax 0.4 mg daily. During this hospitalization, the patient was extensively explained about the details of her medical condition, details of her diagnoses, details of test results were explained to the patient at length and all questions and concerns answered, which he acknowledged and understood. Time spent in the entire discharge management was more than 45 minutes. Nilesh Canchola MD
== END 2017-01-10 16:03 | disposition home or self-care (01) | DRG 438 ==
LOC: ED 05:39 → ERH 08:27 → 5RSO 09:01 → OBSVTOIN 01-04 09:56
PROVIDERS: ADMIT Internal Medicine; ATTEND Internal Medicine
DX: K85.90 Acute pancreatitis without necrosis or infection, unspecified (principal); J18.9 Pneumonia, unspecified organism; J90 Pleural effusion, not elsewhere classified; I11.9 Hypertensive heart disease without heart failure; J44.0 Chronic obstructive pulmonary disease with (acute) lower respiratory infection; K76.0 Fatty (change of) liver, not elsewhere classified; D50.9 Iron deficiency anemia, unspecified; F10.21 Alcohol dependence, in remission; K86.3 Pseudocyst of pancreas; J98.11 Atelectasis; F17.200 Nicotine dependence, unspecified, uncomplicated; E87.5 Hyperkalemia; E55.9 Vitamin D deficiency, unspecified; R09.02 Hypoxemia; D63.8 Anemia in other chronic diseases classified elsewhere; E78.00 Pure hypercholesterolemia, unspecified; E78.5 Hyperlipidemia, unspecified; E87.6 Hypokalemia; F32.89 Other specified depressive episodes; I51.7 Cardiomegaly; K21.9 Gastro-esophageal reflux disease without esophagitis; K44.9 Diaphragmatic hernia without obstruction or gangrene; K59.00 Constipation, unspecified; K82.8 Other specified diseases of gallbladder; K86.0 Alcohol-induced chronic pancreatitis; L80 Vitiligo; M16.11 Unilateral primary osteoarthritis, right hip; N40.0 Benign prostatic hyperplasia without lower urinary tract symptoms; Z79.82 Long term (current) use of aspirin; Z79.899 Other long term (current) drug therapy; Z80.0 Family history of malignant neoplasm of digestive organs; Z86.73 Personal history of transient ischemic attack (TIA), and cerebral infarction without residual deficits; Z91.19 Patient's noncompliance with other medical treatment and regimen; Z87.892 Personal history of anaphylaxis; Z91.018 Allergy to other foods; R40.2412 Glasgow coma scale score 13-15, at arrival to emergency department; M47.9 Spondylosis, unspecified; R73.9 Hyperglycemia, unspecified; R00.0 Tachycardia, unspecified; I08.1 Rheumatic disorders of both mitral and tricuspid valves; R53.81 Other malaise; M40.209 Unspecified kyphosis, site unspecified; R80.9 Proteinuria, unspecified

== ENCOUNTER 2017-02-22 08:45 | Day surgery (SDC) | payer MEDICARE ==
[2017-02-15 10:25] VITALS: BMI 25.8
[2017-02-22 09:20] LABS: BASO # 0.04 K/mm3 (0.0-2.0); BASO % 0.9 % (0.0-3.0); EOS # 0.2 (0.0-0.7); EOS % 5.6 % (1.5-5.0); GRAN # 1.87 (1.4-6.5); GRAN % 43.5 % (50.0-68.0); HEMATOCRIT 34.2 % (42.0-52.0); LYMPH # 1.7 (1.2-3.4); LYMPH % 39.3 % (22.0-35.0); MEAN CELL VOLUME 81.4 fl (80.0-105.0); MEAN CORPUSCULAR HEMOGLOBIN 26.7 pg (25.0-35.0); MEAN CORPUSCULAR HGB CONC 32.7 g/dl (31.0-37.0); MEAN PLATELET VOLUME 10.8 fl (7.0-11.0); MONO # 0.5 (0.1-0.6); MONO % 10.7 % (1.0-6.0); RED CELL DISTRIBUTION WIDTH 14.4 % (11.5-14.5); WHITE BLOOD COUNT 4.3 10^3/ul (4.5-11.0)
[2017-02-22 09:27] LABS: INR 1.14 (0.93-1.08); PARTIAL THROMBOPLASTIN TIME 28.5 Seconds (23.7-30.8)
[2017-02-22 09:28] LABS: ALB/GLOB RATIO 1.5 (1.1-1.8); ALKALINE PHOSPHATASE 86 U/L (38-126); ALT/SGPT 23 U/L (7-56); AST/SGOT 18 U/L (17-59); BILIRUBIN,TOTAL 0.9 mg/dL (0.2-1.3); BLOOD UREA NITROGEN 8 mg/dL (7-21); CALCIUM 9.3 mg/dL (8.4-10.5); CARBON DIOXIDE 29 mmol/L (21-33); CHLORIDE 102 mmol/L (98-107); GFR AFRICAN-AMERICAN > 60; GLUCOSE,RANDOM 99 mg/dL (70-110); POTASSIUM 3.7 mmol/L (3.6-5.0); SODIUM 145 mmol/L (132-148); TOTAL PROTEIN 7.2 g/dL (5.8-8.3)
[2017-02-22] MEDS ORDERED: cefTRIAXone 1 gm 1 GM/100 ML BAG IVPB STA (12:14)
[2017-02-22] MEDS ORDERED: Propofol 10 mg/ml Inj (20 ML) ONE ×2 (12:41→13:02)
[2017-02-22] MEDS ORDERED: cefTRIAXone (Rocephin) 1 gm Inj ONE (12:41)
[2017-02-22] MEDS ORDERED: Lidocaine 1% Inj (20ml) ONE (12:41)
[2017-02-22] MEDS ORDERED: Midazolam 2 MG/2 ML VIAL ONE (12:49)
[2017-02-22] MEDS ORDERED: Sodium Chloride 0.9% 1,000 ML IV SCH (13:45)
[2017-02-22 14:37] VITALS: BP 141/97; PULSE 72; RESP 16; TEMP 97.7; O2SAT 98
[2017-02-24 21:05] LABS: CEA PANCREATIC 32 ng/mL
== END 2017-02-22 15:12 | disposition home or self-care (01) ==
LOC: ENDO 08:45
PROVIDERS: ATTEND Internal Medicine
DX: K86.2 Cyst of pancreas (principal); K86.1 Other chronic pancreatitis
CPT/HCPCS: 36415; 43238; 80053; 82150; 85025; 85610; 85730; 88173; J0696; J2250; J2704; J3010; J7040 ×2

== ENCOUNTER 2017-03-22 06:16 | Day surgery (SDC) | payer MEDICARE ==
[2017-02-15 10:25] VITALS: BMI 25.8
[2017-03-22] MEDS ORDERED: Propofol 10 mg/ml Inj (20 ML) ONE (09:07)
[2017-03-22] MEDS ORDERED: Sodium Chloride 0.9% 1,000 ML IV SCH (09:45)
[2017-03-22 10:48] VITALS: BP 102/70
[2017-03-22 11:26] VITALS: PULSE 66; RESP 16; TEMP 98.4; O2SAT 96
== END 2017-03-22 11:18 | disposition home or self-care (01) ==
LOC: ENDO 06:16
PROVIDERS: ATTEND Internal Medicine
DX: Z12.11 Encounter for screening for malignant neoplasm of colon (principal); D12.5 Benign neoplasm of sigmoid colon; K64.8 Other hemorrhoids; I10 Essential (primary) hypertension
CPT/HCPCS: 45380; 88305; J2704; J7040 ×2

== ENCOUNTER 2018-10-25 12:43 | Outpatient (CLI) | payer MEDICARE | END 2018-10-25 12:44 | disposition home or self-care (01) | LOC: RAD 12:43 | DX: E06.0 Acute thyroiditis (principal) ==